=== PATIENT | male | born 1935 | race Caucasian/White ===

== ENCOUNTER → 2018-03-21 | Outpatient (CLI) | payer OTHER ==
[~2018-03-21] MED LIST: CARISOPRODOL 3350 MG PO; CLEOCIN HCL150 MG PO; COUMADIN 5 MG TA5 M1 PO; DILANTIN100 MG PO; FETZIMA80 MG PO; KEPPRA 500 MG500 M1 PO; LAMICTAL (BLUE)25 MG PO; METHOTREXATE 22.5 M1 PO; RAZADYNE 4 MG TA4 M1 PO; REMERON45 MG PO; SIMVASTATIN40 MG PO; ZOCOR 10 MG TAB10 MG; ZYPREXA2.5 MG PO
== END ==
LOC: CAT 09:19
DX: G31.9 Degenerative disease of nervous system, unspecified (principal); G40.209 Localization-related (focal) (partial) symptomatic epilepsy and epileptic syndromes with complex partial seizures, not intractable, without status epilepticus; F32.4 Major depressive disorder, single episode, in partial remission; R53.1 Weakness; Z95.0 Presence of cardiac pacemaker

== ENCOUNTER 2019-05-29 18:34 | Inpatient (IN) | payer OTHER ==
[2019-05-28 23:00] VITALS: BP 125/69
[~2019-05-29] VITALS: Ht 177.8 cm; Wt 89.8 kg
[2019-05-29 18:41] VITALS: BP 108/69
[2019-05-29 19:53] LABS: ABSOLUTE NEUTROPHILS 7.7 thou/uL (1.4-8.2); BASOPHILS 0.4 % (0.0-2.0); HEMATOCRIT 47.5 % (42.0-52.0); HEMOGLOBIN 15.9 gm/dL (14.0-18.0); LYMPHOCYTES 6.3 % (24.0-44.0); MCH 34.3 pg (26.0-34.0); MCHC 33.5 g/dL (28.0-37.0); MCV 102.1 fL (80.0-100.0); MONOCYTES 7.2 % (1.0-8.0); PLATELET COUNT 201 thou/uL (150-400); POLYS 86.1 % (36.0-66.0); RBC 4.65 mil/uL (4.50-6.00); WBC 8.9 thou/uL (4.0-11.0)
[2019-05-29 19:57] LABS: CALCIUM 9.9 mg/dL (8.5-10.1); CREATININE 1.1 mg/dL (0.7-1.3); POTASSIUM 4.4 mmol/L (3.5-5.1)
[2019-05-29 20:03] LABS: ALBUMIN 4.1 g/dL (3.4-5.0); TOTAL BILIRUBIN 0.6 mg/dL (<0.1-1.0); TOTAL PROTEIN 8.2 g/dL (6.4-8.2)
[2019-05-29] MEDS ORDERED: LORAZEPAM 22 MG/1 ML PO (20:27)
[2019-05-29 20:28] LABS: INR 2.4; PROTIME 25.4 Seconds (9.3-11.4)
[2019-05-29] MEDS ORDERED: EFFEXOR 5050 MG/1 T1 PO (20:29)
[2019-05-29] MEDS ORDERED: REMERON15 MG PO (20:29)
[2019-05-29] MEDS ORDERED: ABILIFY 2 MG2 M1 PO (20:30)
[2019-05-29] MEDS ORDERED: DESVENLAFAXINE100 M3 PO (20:31)
[2019-05-29] MEDS ORDERED: ASPIR-LOW81 MG PO (20:37)
[2019-05-29 22:06] LABS: URINE BILIRUBIN NEGATIVE (Negative); URINE BLOOD TRACE (Negative); URINE CLARITY CLEAR; URINE COLOR YELLOW; URINE GLUCOSE-RANDOM* NEGATIVE (Negative); URINE KETONES NEGATIVE (Negative); URINE LEUKOCYTES-REFLEX NEGATIVE (Negative); URINE NITRITE-REFLEX NEGATIVE (Negative); URINE PROTEIN (DIPSTICK) NEGATIVE (Negative); URINE SPECIFIC GRAVITY <= 1.005 (1.005-1.035); URINE UROBILINOGEN 0.2 E.U./dl (0.2-1.0)
[2019-05-29] MEDS ORDERED: LEXAPRO20 MG PO (22:13)
[2019-05-29 22:18] VITALS: BP 125/61
[2019-05-29 22:20] VITALS: BP 100/61
--- NOTE | 2019-05-30 01:00 | NUR ---
ADMISSION NOTE: AOX4. RA. VSS. ADMISSION HISTORY AND ASSESSMENT DOCUMENTED AND COMPLETED. BREAD ROOM HAND CHILDS AT BEDSIDE, ORDERS RECIEVED AND IMPLEMENTED. MEDICATED FOR PAIN RELIEF. PT UP WITH MIN ASSIST, USES URINAL. EDUCATED ABOUT FALL PRECAUTION, CONSENT SIGNED. DAUGHTER AT BEDSIDE. WILL CONITNUE TO MONITOR.
[2019-05-30 02:32] LABS: HEMATOCRIT 42.8 % (42.0-52.0); MCH 33.2 pg (26.0-34.0); MCHC 32.6 g/dL (28.0-37.0); RBC 4.2 mil/uL (4.50-6.00); RDW 14.2 % (10.5-14.5); WBC 12.4 thou/uL (4.0-11.0)
[2019-05-30 02:38] LABS: CALCIUM 8.9 mg/dL (8.5-10.1); CREATININE 1.3 mg/dL (0.7-1.3); POTASSIUM 3.9 mmol/L (3.5-5.1)
[2019-05-30 03:00] LABS: INR 2.3; PROTIME 24.1 Seconds (9.3-11.4)
[2019-05-30 03:23] VITALS: BP 127/65
--- NOTE | 2019-05-30 05:45 | NUR ---
INCREASE IN LACTIC ACID, AND WBC. CRITICAL LAB VALUES COMMUNICATED TO KAROL CHILDS. ORDERS RECIEVED FOR TRANSFER TO TELE. DAUGHTER AND PT MADE AWARE ABOUT LABS AND TRANSFER STATUS. PT DOES REPORT LESS ABDOMINAL PAIN INTENSITY. WILL CONTINUE TO MONITOR.
[2019-05-30 06:30] VITALS: BP 110/59
--- NOTE | 2019-05-30 07:26 | NUR ---
ASSUMED PT CARE AT 0620 A TRANSFER FROM . STRIP PRINTED AND IN CHART. ADMISSION ASSESSMENT DONE. PT STABLE IN BED. VSS. PT IS NPO. LACTIC ACID TRENDING DOWN. PT CARE TRANSFERED TO DAY NURSE
--- NOTE | 2019-05-30 07:40 | EKG ---
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 Machine: MARIA ELENA : 1935 Requested By: Gabriel Bustillo Order Number: [id number] MD: Cash Hoskins Measurements Intervals [place] Rate: 70 P: 0 KS: 54 QRS: -90 QRSD: 140 T: 76 QT: 448 QTc: 484 Interpretive Statements Ventricular-paced rhythm No further analysis attempted due to paced rhythm Compared to ECG 03/02/2015 19:43:09 No significant changes Electronically Signed On 05-30-2019 7:40:28 CDT by Cash Hoskins [email or web address] <ELECTRONICALLY SIGNED> By: Cash Hoskins MD, [facility] 05/30/19 0740 06 06 Cash Hoskins MD, [facility] /EPI
--- NOTE | 2019-05-30 12:11 | NUR ---
met with patient and family at bedside. patient admits with abd pain and reports pain at this time. RN is present. patient resides at home alone in split level home. 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 he does own cooking and has cleaning lady for home. PCP Dr Dru Treadwell. He does not drive and family assists with driving. Casemgt following for dc planning.
[2019-05-30 13:00] VITALS: BP 120/62
[2019-05-30 16:00] VITALS: BP 123/74
--- NOTE | 2019-05-30 18:45 | NUR ---
pt progressing today. fentanyl given for abdominal discomfort with little to no pain relief. tylenol given po. vpaced, room air. npo in am, then increased to clear liquid diet. abdominal discomfort associated with diet, encouraged pt to take small amount of fluid, then increase as tolerated. pt tolerated pm meal, tylenol controlling abd discomfort, sleeping now. pt up to chair initially with PT, then up to chair again. encouraging active rom while in bed and being out of bed as much as possible. family members present, providing support.
[2019-05-30 19:25] VITALS: BP 114/58
[2019-05-30 23:07] VITALS: BP 114/58
[2019-05-31 03:33] VITALS: BP 122/56
[2019-05-31 05:21] LABS: MCH 33.7 pg (26.0-34.0); MCHC 33.2 g/dL (28.0-37.0); MCV 101.4 fL (80.0-100.0); RBC 3.55 mil/uL (4.50-6.00)
[2019-05-31 05:32] LABS: INR 1.7; PROTIME 17.4 Seconds (9.3-11.4)
[2019-05-31 05:50] LABS: CALCIUM 8.5 mg/dL (8.5-10.1); CREATININE 0.9 mg/dL (0.7-1.3); POTASSIUM 3.9 mmol/L (3.5-5.1)
--- NOTE | 2019-05-31 06:49 | NUR ---
ASSUMED PT CARE AT 1900. PT C/O PAIN ON ABD GAVE TYLENOL AND PT WENT TO SLEEP. PT VSS. PT WAS NOT VERY STEADY AND ADVISED HE SHOULD CALL PRIOR TO GETTING UP. PT HAD ELEVATED TEMP THIS AM AND GAVE TYLENOL TEMP DECREASED. WILL CONTINUE TO MONITOR PER POC.
[2019-05-31 08:30] VITALS: BP 124/62
[2019-05-31 10:49] LABS: BE(vivo) -0.7 mmol/L (-2 to +3); HCO3 22.4 mmol/L (22.0-26.0); PCO2 32.5 mmHg (35.0-45.0); PO2 59.4 mmHg (80.0-100.0); pH 7.457 (7.360-7.450); sO2 92.3 % (92.0-98.0)
[2019-05-31 12:30] VITALS: BP 128/52
--- NOTE | 2019-05-31 14:17 | NUR ---
Pt going to surgery for possible exp lap and possible bowel resection. Will continue to follow and reassess his dc needs postop. Therapy on hold.
--- NOTE | 2019-05-31 14:54 | 2DMMODE ---
[facility] [address] [place] [address] 2 D/M-MODE ECHOCARDIOGRAM Name: SUNDAR NOBLES Room #: 207-P [facility].#: [id number] Admission: 05/29/19 Attend Phys: Merry Rust MD Discharge: Date of : 39 Report #: [id number] THIS REPORT FOR: //name// APPROVED REPORT Study performed: 05/31/2019 13:09:05 EXAM: Comprehensive 2D, Doppler, and color-flow Echocardiogram Patient Location: In-Patient Room #: 207 Status: routine BSA: 1.98 HR: 70 bpm BP: 128/52 mmHg Rhythm: NSR Other Information Study Quality: Adequate Technically limited study due to inability to position patient. Indications Atrial Fibrillation Pacemaker Porcine bioprosthetic Aortic valve, Porcine bioprosthetic Mitral valve 2D Dimensions IVC: 21.00 mm Aortic Valve AoV Peak Mejia.: 2.74 m/s AO Peak Gr.: 28.06 mmHg AO Mean Gr.: 14.92 mmHg AO V2 Mean: 1.79 m/s AO V2 VTI: 45.32 cm Pulmonary Valve PV Peak Mejia.: 1.38 m/s PV Peak Gr.: 7.59 mmHg Tricuspid Valve TR Peak Mejia.: 3.41 m/s TR Peak Gr.: 46.59 mmHg PA Pressure: 56.00 mmHg [facility] [address] [place] [address] 2 D/M-MODE ECHOCARDIOGRAM Name: SUNDAR NOBLES Room #: 207-P ADM IN M.R.#: [id number] Admission: 05/29/19 Attend Phys: Merry Rust MD Discharge: Date of : 39 Report #: [id number] Left Ventricle The left ventricle is normal size. There is normal left ventricular wall thickness. The left ventricular systolic function is normal. The left ventricular ejection fraction is within the normal range. LVEF is 55-60%. Right Ventricle The right ventricle is normal size. Right ventricular systolic function appears grossly normal. Pacemaker lead is present in the right ventricle. Atria Left atrium is dilated. Right atrium is dilated. Pacemaker lead is present in the right atrium. Aortic Valve Bioprostheic porcine Aortic Valve is present. Prosthetic aortic valve is grossly normal in appearance. No aortic regurgitation is present. Calculated aortic valve area is 2.7 cm2 with maximum pressure gradient of 30 mmHg and mean pressure gradient of 15 mmHg. Mitral Valve Bioprosthetic pocine Mitral Valve present. Bioprosthetic pocine Mitral Valve present. Trace to mild mitral regurgitation. No evidence of mitral valve stenosis. Tricuspid Valve The tricuspid valve is normal in structure. Moderate tricuspid regurgitation. Estimated PAP is 56 mmHg Pulmonic Valve The pulmonary valve is normal in structure. There is no pulmonic valvular regurgitation. Great Vessels The aortic root is normal in size. IVC is dilated and collapses >50% with inspiration. Pericardium There is no pericardial effusion. <Conclusion> The left ventricle is normal size. There is normal left ventricular wall thickness. The left ventricular systolic function is normal. The right ventricle is normal size. [facility] [address] [place] [address] 2 D/M-MODE ECHOCARDIOGRAM Name: SUNDAR NOBLES Room #: 207-P [facility].#: [id number] Admission: 05/29/19 Attend Phys: Merry Rust MD Discharge: Date of : 39 Report #: [id number] Left atrium is dilated. Bioprostheic porcine Aortic Valve is present. Prosthetic aortic valve is grossly normal in appearance. Bioprosthetic pocine Mitral Valve present. Trace to mild mitral regurgitation. Moderate tricuspid regurgitation. Estimated PAP is 56 mmHg <ELECTRONICALLY SIGNED> By: Zeke Valdez MD 05/31/193 52 52 Zeke Valdez MD /INF
--- NOTE | 2019-05-31 16:03 | NUR ---
PATIENT CARE ASSUMED, ALERT AND ORIENTED X4, COMPLAINTS OF ABDOMINAL PAIN, PREPARE PATIENT FOR EXPLORATORY SURGERY, FAMILY AT BEDSIDE, WILL CONTINUE TO MONITOR
[2019-05-31 18:16] LABS: BE(vivo) -4.8 mmol/L (-2 to +3); HCO3 18.5 mmol/L (22.0-26.0); PCO2 29.8 mmHg (35.0-45.0); PO2 136.4 mmHg (80.0-100.0); pH 7.411 (7.360-7.450); sO2 98.8 % (92.0-98.0)
[2019-05-31 20:00] VITALS: BP 120/75
[2019-05-31 20:31] VITALS: BP 104/59
[2019-05-31 20:46] LABS: BE(vivo) -5.7 mmol/L (-2 to +3); HCO3 17.9 mmol/L (22.0-26.0); PCO2 30.8 mmHg (35.0-45.0); PO2 106.2 mmHg (80.0-100.0); pH 7.383 (7.360-7.450); sO2 97.9 % (92.0-98.0)
[2019-05-31 22:00] VITALS: BP 102/65
[2019-06-01] VITALS (9 sets, daily range): BP systolic 95–129; BP diastolic 56–74
[2019-06-01 04:31] LABS: CALCIUM 7.6 mg/dL (8.5-10.1); CREATININE 1.3 mg/dL (0.7-1.3); MAGNESIUM 1.5 mg/dL (1.8-2.4); PHOSPHORUS 3.5 mg/dL (2.5-4.9); POTASSIUM 4.2 mmol/L (3.5-5.1)
[2019-06-01 04:58] LABS: HEMATOCRIT 43.3 % (42.0-52.0); MCHC 33.6 g/dL (28.0-37.0); MCV 101.3 fL (80.0-100.0); RBC 4.27 mil/uL (4.50-6.00); RDW 13.9 % (10.5-14.5); WBC 10.2 thou/uL (4.0-11.0)
[2019-06-01 05:15] LABS: BE(vivo) -4.5 mmol/L (-2 to +3); HCO3 18.9 mmol/L (22.0-26.0); PCO2 30.8 mmHg (35.0-45.0); PO2 95.8 mmHg (80.0-100.0); pH 7.406 (7.360-7.450); sO2 97.4 % (92.0-98.0)
[2019-06-01 05:52] LABS: HEMOGLOBIN 14.5 gm/dL (14.0-18.0)
--- NOTE | 2019-06-01 07:19 | NUR ---
PATIENT HAD EXPLORATORY PROCEDURE, ON HOLD FROM OT AT THIS TIME.
--- NOTE | 2019-06-01 07:47 | NUR ---
PATIENT ADMITTED FROM RECOVERY 05/31/19 AT 2000. PATIENT ON VENTILATOR, SAMUEL PATENT AND DRAINING. RIGHT RADIAL ART LINE IN PLACE. NG TUBE PATENT. PATIENT OXYGEN NEEDS DECREASED FROM 60% TO 40% OVER NIGHT. NO SIGNS OF ACUTE DISTRESS NOTED AT THIS TIME. SPOKE WITH DR. BREWSTER ABOUT DECREASED URINE OUTPUT. WILL CONTINUE TO MONITOR.
--- NOTE | 2019-06-01 08:10 | NUR ---
Pt TRANSFERRED TO ICU FOR HIGHER LEVEL OF CARE AND IS NOW ON VENTILATOR S/P EX LAP WITH PLACEMENT OF DRAINS YESTERDAY. WILL NEED NEW PT ORDERS TO RESUME PT INTERVENTIONS WHEN Pt IS APPROPRIATE FOR THERAPY SERVICES.
[2019-06-01 09:19] LABS: INR 1.8; PROTIME 19.2 Seconds (9.3-11.4)
[2019-06-01 09:37] LABS: BE(vivo) -4.1 mmol/L (-2 to +3); HCO3 19.2 mmol/L (22.0-26.0); PCO2 30.6 mmHg (35.0-45.0); PO2 77.6 mmHg (80.0-100.0); pH 7.416 (7.360-7.450); sO2 95.8 % (92.0-98.0)
[2019-06-02] VITALS (11 sets, daily range): BP systolic 109–128; BP diastolic 58–69
--- NOTE | 2019-06-02 04:29 | NUR ---
NO OVERNIGHT EVENTS. INCREASED DRAINAGE OF RIGHT JOSE LUIS DRAIN. VSS. INCREASED URINARY OUTPUT. ASSESSMENTS AND VITAL SIGNS CHARTED. CONTINUE TO FOLLOW POC. WILL CONTINUE TO MONITOR.
[2019-06-02 05:26] LABS: CALCIUM 7.5 mg/dL (8.5-10.1); POTASSIUM 3.7 mmol/L (3.5-5.1)
[2019-06-02 05:29] LABS: HEMATOCRIT 35.2 % (42.0-52.0); MCH 33.4 pg (26.0-34.0); MCV 101.3 fL (80.0-100.0); RBC 3.48 mil/uL (4.50-6.00); RDW 13.9 % (10.5-14.5); WBC 12.2 thou/uL (4.0-11.0)
[2019-06-02 05:47] LABS: HEMOGLOBIN 11.6 gm/dL (14.0-18.0)
[2019-06-02 09:51] LABS: BE(vivo) -4.1 mmol/L (-2 to +3); HCO3 19.9 mmol/L (22.0-26.0); PCO2 32.8 mmHg (35.0-45.0); PO2 89.7 mmHg (80.0-100.0); pH 7.401 (7.360-7.450)
--- NOTE | 2019-06-02 10:48 | NUR ---
0730-Pt was sedated. Pupils reacted to the light briskly. Temp 98.3 Axillary. LS clear, on vent A/C 18. V. paced rhythm, Regular w/ 70s. Traceable edema on LE, kaelyn. +1 edema on hand, kaelyn. Propofol @19.98. Fentanyl gtt @25mcg. Maintenamce fluid, 1/2 NS @125. Dressing on midline of ABD w/ ABD pads & hypafix tapes, IC&D. JOSE LUIS 1 on R side w/ serosanguneous, JOSE LUIS 2 on L side w/ serous. NG on L nare was taped @60 w/ bile color drainage on LIS. Buckley in place. 834- Sedation vacation was initiated. Propofol was turned off. Notified RT. RT put pt on C-PAP mode @0840, 5-5-40% 0940-RT did blood gas and put pt on vent again w/ AC 18. RR remained between 17 to 24 during C-PAP weaning Restraints has been off since 0835. Pt was very calm & cooperative. Pt c/o pain though. Fentanyl gtt was on although propofol was turned off.
[2019-06-03] VITALS (28 sets, daily range): BP systolic 100–176; BP diastolic 43–73
[2019-06-03 02:13] LABS: HEMATOCRIT 33.5 % (42.0-52.0); HEMOGLOBIN 10.9 gm/dL (14.0-18.0); MCH 32.7 pg (26.0-34.0); MCHC 32.4 g/dL (28.0-37.0); RBC 3.32 mil/uL (4.50-6.00); RDW 13.9 % (10.5-14.5); WBC 11.6 thou/uL (4.0-11.0)
[2019-06-03 02:23] LABS: CALCIUM 7.6 mg/dL (8.5-10.1); POTASSIUM 3.2 mmol/L (3.5-5.1)
--- NOTE | 2019-06-03 06:00 | NUR ---
PT SLEPT AT INTERVALS TONIGHT. ABD DRESSINBG INTACT. TOTAL OF 45 CC FROM 2 JOSE LUIS DRAINS. 1000 CC UO THIS SHIFT. AWAKE AND ALERT. A VERY DELIGHTFUL GENTLEMAN. REMAINS PACED. WILL CONT TO MONITIOR
--- NOTE | 2019-06-03 10:04 | NUR ---
Pt is alert, oriented x 4. Pt was watching TV. Afebrile. Clear LS on upper lobe and decreased on base. V. PACED rhythm on monitor w/ HR 70s. BP 100s to 110s. [place] in place. Edema on hands and traceable on ankle, kaelyn. Hypo active BS. Dressing in place w/ JOSE LUIS each side. NPO. NG tube on L nare w/ WIS, Greenish drainage. Buckley in place. 0900-Pt c/o pain, 03/31. Fentanyl 50 mcg was administered per order. Potassium infusion was initiated this morning but pt c/o burning on his IV site. Reduced infusion rate but pt still c/o the burning. Turned off the infusion. 946-PICC line placement was done by IV team. CX-RAY was ordered. Pt tolerated well.
--- NOTE | 2019-06-03 10:51 | NUR ---
CXR CONFIRMED [OCC IN DISTAL SVC, PICC RELEASED FOR IMMEDIATE USE PER PROTOCOL.
[2019-06-04] VITALS (19 sets, daily range): BP systolic 119–164; BP diastolic 28–75
--- NOTE | 2019-06-04 06:00 | NUR ---
PT AWAKE AND ALERT. VSS CONT TO HAVE ABD PAIN., DRESSINGS DRY AND INTACT TOTAL OF 40 CC BILAT JOSE LUIS DRAINAGE. 200 CC NG TUBE DRG AND 1400 CC UO THIS SHIFT. REMAINS V PACED. WILL CONBT TO MONITOR.
[2019-06-04 08:40] LABS: HEMATOCRIT 29.3 % (42.0-52.0); HEMOGLOBIN 9.9 gm/dL (14.0-18.0); MCH 34.2 pg (26.0-34.0); MCHC 33.8 g/dL (28.0-37.0); MCV 101.2 fL (80.0-100.0); RBC 2.89 mil/uL (4.50-6.00); WBC 9.6 thou/uL (4.0-11.0)
[2019-06-04 09:00] LABS: CALCIUM 7.5 mg/dL (8.5-10.1); CREATININE 0.7 mg/dL (0.7-1.3); MAGNESIUM 1.9 mg/dL (1.8-2.4); POTASSIUM 3.2 mmol/L (3.5-5.1)
--- NOTE | 2019-06-04 12:33 | NUR ---
FOLLOWING FOR DC PLANNING. CLINICAL INFO REVIEWED. PT ADMIT WITH ENTERITIS AND IS NOW POD #4 EX LAP WITH WASHOUT AND DRAIN PLACEMENT FOR ABD ABSCESS. NGT IN, NPO, EXTUBATED 06/02/19. ON TPN AT PRESENT. THERAPY EVALS REORDERED NOW THAT EXTUBATED. PT LIVES ALONE AND HAS SUPPORTIVE FAMILY. LIKELY NEEDS REHAB, HH VS ACUTE VS SKILLED.
--- NOTE | 2019-06-04 12:37 | O ---
[address] [address] OPERATIVE REPORT Name: SUNDAR NOBLES Room #: 241-P ADM IN M.R.#: [id number] Admission: 05/29/19 Attend Phys: Merry Rust MD Discharge: Date of : 39 Report #: [id number] THIS REPORT FOR: //name// CC: Mich Rust DATE OF SERVICE: 05/31/2019 PROCEDURE PERFORMED: 1. Diagnostic laparoscopy. 2. Exploratory laparotomy with washout. 3. Placement of drains. PREOPERATIVE DIAGNOSES: 1. Ischemic versus infectious enteritis. 2. Peritonitis. 3. Lactic acidosis. 4. Atrial fibrillation, on warfarin. 5. Valvular heart disease, status post mitral and aortic valve replacement. 6. Coronary artery disease. 7. Rheumatoid arthritis. POSTOPERATIVE DIAGNOSES: 1. Ischemic versus infectious enteritis. 2. Peritonitis. 3. Lactic acidosis. 4. Atrial fibrillation, on warfarin. 5. Valvular heart disease, status post mitral and aortic valve replacement. 6. Coronary artery disease. 7. Rheumatoid arthritis. SURGEON: Dr. Barroso. ANESTHESIA: General. ESTIMATED BLOOD LOSS: Less than 50 mL. SPECIMENS: None. COMPLICATIONS: None. FINDINGS: 1. The patient had an abscess between the small bowel and transverse mesocolon. 2. The patient had severe transverse colon colitis. 3. No perforation appreciated. 4. The patient had serosanguineous ascites. [address] [address] OPERATIVE REPORT Name: SUNDAR NOBLES Room #: 241-P [facility] IN [facility]#: [id number] Admission: 05/29/19 Attend Phys: Merry Rust MD Discharge: Date of : 39 Report #: [id number] INDICATIONS FOR PROCEDURE: The patient is a very pleasant 83-year-old gentleman who has been hospitalized with abdominal pain. The patient had a CTA performed that demonstrated findings concerning for infectious versus ischemic enteritis. The patient was observed and his pain worsened, he started having nausea and vomiting. General Surgery was consulted. At the time of my exam, he was found to be peritonitic. I did discuss his case with the team that had been seeing him throughout his stay as well as his family. I recommended diagnostic laparoscopy, possible exploratory laparotomy, possible bowel resection, possible ostomy. The risks, benefits and alternatives of the procedure were discussed with the patient and his family. The risks discussed included but were not limited to the risk of bleeding, infection, bowel resection, possible ostomy, need for further surgery, further hospitalization, damage to any intra-abdominal organs, anesthesia (cardiac, pulmonary and neurologic type complication), and . The patient and his family members have the opportunity to ask questions. All questions were answered to the best of my ability. At the end of the discussion, they did wish to proceed with surgery. DESCRIPTION OF PROCEDURE: After informed consent was obtained as above, the patient was taken to the operating room and placed in the supine position. Both arms were tucked. Buckley catheter was then inserted. General anesthesia was induced. The anterior abdomen was prepped and draped in the usual sterile fashion. A timeout was performed. All were in agreement. A 5 mm supraumbilical incision was made. Veress needle was then inserted. Pneumoperitoneum was created. A 5 mm port was passed and the laparoscope was then inserted. Abdomen was inspected immediately. There was serosanguineous ascites that was in the pelvis that was appreciated. We began by placing 2 more ports, one in the suprapubic position along the left lower quadrant position. These were [address] after injection of local anesthetic without any difficulties. The abdomen was then explored. There was omentum that was stuck to the patient's right upper quadrant. Therefore, I started running the small bowel. The small bowel was identified at the terminal ileum exactly where it met the cecum. Small bowel was then ran proximally. I was able to run the small bowel for several feet until I reached the right upper quadrant where the small bowel was tethered to surrounding structures through the fibrinous adhesions. The small bowel easily pulled away from this; however, the further I kept going, the stronger the fibrinous adhesions became until a point where the small bowel was tightly adhered to the transverse mesocolon. Upon blunt dissection of the bowel away from the transverse mesocolon, there was release of a small purulent abscess. This abscess was at the base of the transverse mesocolon. The transverse mesocolon was found to be erythematous and thickened. However, I cannot see a definite perforation in the small bowel or in the colon. Given these findings, I did not feel comfortable backing out without [address] [address] OPERATIVE REPORT Name: SUNDAR NOBLES Room #: 241-P [facility] IN ..#: [id number] Admission: 05/29/19 Attend Phys: Merry Rust MD Discharge: Date of : 39 Report #: [id number] actually palpating the bowel and trying harder to rule out a perforation given that I had found an abscess cavity. Therefore, I elected to convert to an open procedure to further inspect the bowel as well as for washout and irrigation purposes. Therefore, I stopped the laparoscopic portion of the procedure and converted to the midline incision using a 10 blade scalpel. Incision was carried down to the fascia using electrocautery. Peritoneal cavity was entered. Bookwalter was set up. The patient's entire abdomen was explored. The region in the right upper quadrant was explored carefully. The patient's stomach was completely normal. The patient's duodenum was completely normal. The patient's cecum was completely normal. The ascending colon was completely normal. The hepatic flexure of the colon was normal. The patient did have an approximately 10 inches segment of transverse colon just distal to the hepatic flexure that was inflamed and thickened. The patient had an inflamed and thickened epiploic appendages around the colon and he also had inflamed and thickened transverse mesocolon in this region. The abscess cavity was appreciated. The small bowel that was attached to this area was closely inspected. There was no kristian perforation identified. The remainder of the colon was then explored. The rest of the transverse colon and descending colon was explored and found to be normal. The sigmoid colon was normal. I then ran the small bowel in an open fashion from the ligament of Treitz to terminal ileum, it was found to be without any perforation. The small bowel did have the region of inflammation of the part of the bowel that was tightly adhered to the transverse mesocolon and abscess cavity, but other than that was completely normal. Given the findings of severe inflammation and abscess, I was concerned about missing a perforation. At this time, I did ask one of my partners to come and assist me. Ultimately, I showed him the findings in the patient's abdomen and we elected for no bowel resection and placement of drains for wide drainage and continued observation. The patient's abdomen was irrigated out with copious amounts of warm irrigation. The irrigation was clear when we were finished with this. Hemostasis was present. Two 19-[place] drains were placed, one posterior to the transverse mesocolon and one anterior to the transverse colon in the right upper quadrant, one was brought out through the patient's right lower quadrant and one was brought out through the patient's left lower quadrant, secured to the skin using nylon suture. Hemostasis was present. We then focused on closure of the fascia. The fascia was closed using 0 PDS in a continuous running fashion, taking 0.5 cm x 0.5 cm advancement. The skin was then irrigated out and the skin was closed using fei. The patient's abdomen was cleaned and dried in appropriate fashion. Appropriate dressings were applied. The patient tolerated the procedure well and there were no adverse events throughout the course of procedure. The patient was left intubated as he was having respiratory failure on a mask [address] [address] OPERATIVE REPORT Name: SUNDAR NOBLES Room #: 241-P [facility] IN [facility]#: [id number] Admission: 05/29/19 Attend Phys: Merry Rust MD Discharge: Date of : 39 Report #: [id number] prior to the procedure; however, he had no decompensation in his overall status throughout the course of the procedure, and he tolerated it well. <ELECTRONICALLY SIGNED> By: Mike Barroso MD 06/04/19 1237 1131 1440 Mike Barroso MD /nt
--- NOTE | 2019-06-04 16:07 | NUR ---
PATIENT UP TO CHAIR WITH PT. HE HAS RESTED TODAY. PAIN NUMBER STAYS THE SAME DESPITE PAIN MEDICATION ADMINISTRATION, HOWEVER, HE DOES EXPRESS THE PAIN MEDICATION HELPS HIM. MIDLINE INCISION DRESSING CHANGED BY DR. BREWSTER. PATIENT PROGRESSING TOWARDS PLAN OF CARE WITH USE OF INCENTIVE SPIROMETER AND INCREASING MOBILITY.
--- NOTE | 2019-06-04 19:16 | HC ---
[facility] [place] [address] CONSULTATION Name: SUNDAR NOBLES Room #: 241-P ADM IN M.R.#: [id number] Admission: 05/29/19 Attend Phys: Merry Rust MD Discharge: Date of : 39 Report #: [id number] THIS REPORT FOR: //name// CC: Mich Rust DATE OF SERVICE: 06/01/2019 INFECTIOUS DISEASES CONSULTATION REASON FOR CONSULTATION: I was asked to evaluate concerning peritonitis with abscess and sepsis. HISTORY OF PRESENT ILLNESS: The patient was an 83-year-old who presented on 05/29/2019 with acute abdominal pain. He does have a history of rheumatoid arthritis, coronary artery disease, atrial fibrillation and aortic, mitral valve replacement. Pain was initially sharp and was increasing in nature. No nausea or vomiting. No reported diarrhea. Tends to be more constipated. Treats this with MiraLax every other day. Remains on methotrexate for his rheumatoid arthritis. Presented to the Emergency Room where CT scan showed nonspecific enteritis without evidence of abscess. Subsequently, worsened and required laparotomy where intra-abdominal abscess was identified associated with abscess between the transverse mesocolon and small bowel. There was transverse colon colitis evident without definite perforation. He also developed further respiratory compensation following NG tube placement in the right mainstem bronchus. This has been corrected. Remains on the ventilator on FiO2 of 40%. Moderate tracheal secretions. No other cardiac issues. He does have aortic and mitral valve replacement. His antibiotics have included ciprofloxacin and metronidazole. His maximum temperature has been up to 100.9 axillary. Hemodynamically, he has remained stable. He has a JOSE LUIS in place with serosanguineous output. No stool output. NG tube in place to suction. Orally intubated. Central venous access without drainage. REVIEW OF SYSTEMS: A 10-point review was negative other than what has been described above. ALLERGIES: MORPHINE. MEDICATIONS: As noted on his MAR including admitting medications including Zocor, lorazepam, Abilify, Coumadin, Keppra, methotrexate, Remeron, desvenlafaxine, aspirin, Lexapro. PAST MEDICAL HISTORY: Coronary artery disease, coronary bypass grafting, atrial fibrillation, aortic and mitral valve bioprosthetic replacement, anxiety, rheumatoid arthritis, on immunosuppression, diverticulosis, seizure disorder, permanent pacemaker. [address] [address] CONSULTATION Name: SUNDAR NOBLES Saji Room #: 241-P [facility] IN [facility].#: [id number] Admission: 05/29/19 Attend Phys: Merry Rust MD Discharge: Date of : 37 Report #: [id number] FAMILY HISTORY: Noncontributory. SOCIAL HISTORY: Nonsmoker, no significant alcohol intake. PHYSICAL EXAMINATION: VITAL SIGNS: He is afebrile, hemodynamically stable. Maximum temperature 100.9 degrees axillary. On fentanyl and propofol. IV access without erythema or drainage. Orally intubated without mucositis or lesion. HEENT: Eyes, without scleral icterus. Pupils equal, round and reactive to light. SKIN: Without rash or decubitus. No palpable adenopathy. LUNGS: Coarse bilaterally. HEART: Regular, without murmur, gallop or rub. ABDOMEN: Distended, diffusely tender. Midline abdominal incision well approximated. Drain with serosanguineous output. GENITOURINARY: External genitalia unremarkable with indwelling Buckley catheter. There are no masses or lesions. RECTAL: Not performed. EXTREMITIES: Without clubbing, cyanosis or edema. The patient was able to move all of his extremities. Unable to follow commands, otherwise due to his sedation. LABORATORY STUDIES: ABGs on 40% FiO2 showed a pO2 of 77, pCO2 of 30, pH 7.4. Blood cultures are negative to date. Hemoglobin 14.5, white count 10.2, platelet count 159,000. Lactate was 2.6, creatinine 1.3. Chest x-ray with left lower lobe consolidation and right perihilar infiltrate. Echocardiogram revealed normal LV function, bioprosthetic aortic and mitral valve without abnormality. No intraoperative cultures obtained. IMPRESSION: Postoperative day #1 from laparotomy finding transverse colitis with intra-abdominal abscess. He has coronary artery disease, status post coronary bypass grafting. Atrial fibrillation, previously on Coumadin, now respiratory failure. Other issues include anxiety, depression, seizure disorder, diverticulosis. Still unclear as to the etiology of his perforation. The patient has had issues with some constipation and a question whether he had an episode of ischemia versus related to diverticular disease. RECOMMENDATION: The patient will stay on broad antibiotic coverage. We will see how he does over the next week as he continues his rehabilitation from this [address] [address] CONSULTATION Name: SUNDAR NOBLES Saji Room #: 241-P ADM IN .R.#: [id number] Admission: 05/29/19 Attend Phys: Merry Ruts MD Discharge: Date of : 37 Report #: [id number] event. I have discussed with daughter and nursing at the bedside. We will monitor for development of any other further intraabdominal abscess. <ELECTRONICALLY SIGNED> By: Silvano Diaz MD 06/04/19 [id number] Silvano Diaz MD /nt
[2019-06-05] VITALS (15 sets, daily range): BP systolic 69–154; BP diastolic 17–66
[2019-06-05 03:27] LABS: ALBUMIN 1.6 g/dL (3.4-5.0); CALCIUM 7.8 mg/dL (8.5-10.1); CREATININE 0.8 mg/dL (0.7-1.3); PHOSPHORUS 2.3 mg/dL (2.5-4.9); POTASSIUM 3.4 mmol/L (3.5-5.1); TOTAL BILIRUBIN 0.3 mg/dL (<0.1-1.0); TOTAL PROTEIN 5.4 g/dL (6.4-8.2)
--- NOTE | 2019-06-05 06:00 | NUR ---
AWAKE AND ALERT. REMAINS A CCU TELE OVERFLOW. SLEPT At intervals tonight. 1300 CC UO AND TOTAL OF 60 CC JOSE LUIS DRAINAGE. ABD DRESSING DRY AND INTACT. V PACED RHYTHM. WILL CONT TO MONITOR.
--- NOTE | 2019-06-05 07:44 | NUR ---
DR BREWSTER HERE. LEFT ORDERS TO CLAMP NG TUBE NOW CHECK RESIDUALS Q 6 HRS AND TO CALL OF > 300 CC. RETURN TO LIS IF N&V. WILL CONT TO MONITOR
--- NOTE | 2019-06-05 10:41 | NUR ---
ASSUMED CARE OF PT AT 0645. DR BREWSTER ORDER TO CLAMP NG AND CHECK RESIDUAL Q6H. DR HERNANDEZ INQUIRING IF LOVONOX CAN BE STARTED. DR BREWSTER PAGED AT 1040 TO ASK ABOUT HEPARIN V LOVONOX. PT UP TO CHAIR WITH THERAPY. PLAN TO TX OUT OF ICU WHEN BED AVAILABLE. POSS ADMIT TO [facility].
--- NOTE | 2019-06-05 11:03 | NUR ---
PATIENT SEEN BY DR. WASHINGTON ON 06/04/19. THERAPY IS REEVALUATING. NEED TO SEE HOW PATIENT IS PERFORMING WITH FUNCTIONAL MOBILITY PATIENT MEDICALLY STABILIZES. REHAB CONTINUING TO FOLLOW.
--- NOTE | 2019-06-05 17:15 | NUR ---
PT. ARRIVE AT FLOOR AROUND 1330; PT. AOX4; ABLE TO AMBULATE FROM WHEELCHAIR TO BED WITH TWO PEOPLE ASSISSTANCE; SLOW; C/O ABDOMEN PAIN WHEN LYING HEAD LOW; SCHEDULE MEDICATION GIVEN PER REPORT BEFORE BEING TRANSFER; ST. WANTS TO HAVE SOME REST; EDUCATED ABOUT FINISHING ASSESSMENT BEFORE REST; ST. UNDERSTANDING; ASSESSMENT PERFORMED; RESTING ON BED; EDUCATED ABOUT BED & CALL LIGHTS BOTTOMS; PAIN MANAGEMENT; SCHEDULE ACETAMINOPHEN GIVEN; RE-ASSESSMENT PT. ST. DECREASE PAIN; ASKED PAIN LEVEL ST "I DO NOT KNOW"; PT. RESTING WITH RELATIVE AT THE BED SIDE; ASSESSMENT CHARGED; FOLLOWING POC; WILL PASS ON REPORT.
[2019-06-06 00:55] VITALS: BP 119/43
[2019-06-06 05:14] VITALS: BP 129/57
--- NOTE | 2019-06-06 05:49 | NUR ---
Patients cares were assumed at shift change. Patient was assessed and meds were pased. Patient was changed to room 205 from 208 r/t the interferance in the tele monitor, once this change was completed the reseption showed great improvement. hourly rounding wa done.The bed staied in a low and locked position.The bed alarm continues.
[2019-06-06 05:50] LABS: HEMOGLOBIN 9.7 gm/dL (14.0-18.0); MCH 33.5 pg (26.0-34.0); MCHC 33.4 g/dL (28.0-37.0); MCV 100.4 fL (80.0-100.0); RBC 2.89 mil/uL (4.50-6.00); RDW 14.1 % (10.5-14.5); WBC 11.4 thou/uL (4.0-11.0)
[2019-06-06 06:09] LABS: ALBUMIN 1.6 g/dL (3.4-5.0); CALCIUM 7.5 mg/dL (8.5-10.1); CREATININE 0.7 mg/dL (0.7-1.3); MAGNESIUM 1.8 mg/dL (1.8-2.4); PHOSPHORUS 2.8 mg/dL (2.5-4.9); POTASSIUM 3.4 mmol/L (3.5-5.1); TOTAL BILIRUBIN 0.2 mg/dL (<0.1-1.0); TOTAL PROTEIN 5.3 g/dL (6.4-8.2)
[2019-06-06 07:45] VITALS: BP 136/61
--- NOTE | 2019-06-06 09:14 | NUR ---
PATIENT HAS BEEN ACCEPTED TO FOR ACUTE REHAB WITH ANTICIPATED ADMISSION FOR TUESDAY, IF PATIENT IS MEDICALLY READY. WILL CONTINUE TO FOLLOW. FELL CUTTER INFORMED.
[2019-06-06 11:36] VITALS: BP 110/44
[2019-06-06 16:39] VITALS: BP 129/49
--- NOTE | 2019-06-06 17:59 | NUR ---
ASSESSMENT CHARTED. PT ALERT AND ORIENTED. VSS. RECEIVED PRN PAIN MED WITH PARTIAL RELIEF. NG TUBE DISCONTINUED THIS AM. BILATERAL JOSE LUIS DRAIN INTACT. DRESSING C/D/I. SAMUEL CATHETER PATENT TO DD. UP IN THE CHAIR THIS SHIFT. CHECKED FREQUENTLY AND NEEDS MET. WILL CONTINUE TO MONITOR.
[2019-06-06 19:18] VITALS: BP 117/47
[2019-06-07 05:19] VITALS: BP 131/65
--- NOTE | 2019-06-07 07:52 | NUR ---
PATIENT CARES WERE ASSUMED AT SHIFT CHANGE. PATIENT WAS ASSESSED AND MEDS WERE PASSED. PATIENT ONCE AGAIN WAS RETURNED TO ROOM 208 AFTER A DOWN GRADE TO MED/SURG STATUS. HOURLY ROUNS WERE DONE. THE BED IS IN A LOW AND LOCKED POSITION.
[2019-06-07 08:38] VITALS: BP 129/41
[2019-06-07 10:42] LABS: BASOPHILS 0.6 % (0.0-2.0); EOSINOPHILS 1.5 % (0.0-3.0); HEMOGLOBIN 10.3 gm/dL (14.0-18.0); LYMPHOCYTES 7.1 % (24.0-44.0); MCH 36.1 pg (26.0-34.0); MCHC 34.4 g/dL (28.0-37.0); MONOCYTES 8.7 % (1.0-8.0); PLATELET COUNT 330 thou/uL (150-400); POLYS 82.1 % (36.0-66.0); RBC 2.85 mil/uL (4.50-6.00); RDW 14.9 % (10.5-14.5)
[2019-06-07 11:52] VITALS: BP 115/43
[2019-06-07 12:46] LABS: CREATININE 0.8 mg/dL (0.7-1.3); MAGNESIUM 1.9 mg/dL (1.8-2.4); PHOSPHORUS 2.6 mg/dL (2.5-4.9); POTASSIUM 3.6 mmol/L (3.5-5.1)
[2019-06-07 16:25] VITALS: BP 121/65
[2019-06-07 16:50] VITALS: BP 121/65
--- NOTE | 2019-06-07 19:43 | NUR ---
ASSUMED CARE AT 0700, SHIFT ASSESSMENT DONE, MEDS GIVEN, VSS. REPORTED PAIN, PRN PAIN MEDS GIVEN. KUB DONE, STILL SHOWING ILEUS. ORDER RECEIVED TO PUT PATIENT NPO EXCEPT FOR MEDS. ON ROOM AIR, SAMUEL WAS TAKEN OUT. TPN RUNNING. HAS NOT HAD A BOWEL MOVEMENT SINCE SURGERY. WILL CONTINUE TO ASSESS AND ASSIST WITH ADLs NEEDED.
[2019-06-07 20:15] VITALS: BP 133/51; BP 133/56
[2019-06-08 04:46] VITALS: BP 118/49
--- NOTE | 2019-06-08 05:22 | NUR ---
ASSESSMENT DOCUMENTED.PT BEEN RESTING IN NO ACUTE DISTRESS.A/OX4.VSS.AFEBRILE.S/P EXP LAP.ABD INCISIONS COVERED WITH DRY DRESSING.JOSE LUIS DRAINS X2 IN PLACE,DD.PT HAD SEVERAL LARGE STOOLS X4 THIS NIGHT,STARTED WITH FORMED STOOL AND, NOW LOOSE STOOLS.ABD FEEL SOFT TO TOUCH,DENIES NAUSEA.INCONTINENT OF B&B.TPN INFUSING ALONG WITH IVFS.ABT INFUSED PER ORDERS,TOLERATED.PAIN MEDS PER ORDERS.PT DENIES ANY NEEDS AT THIS TIME.WILL CONT TO MONITOR PER POC. PT POGRESSING FAIRLY TOWARDS GOALS.
[2019-06-08 08:34] LABS: CALCIUM 8.3 mg/dL (8.5-10.1); CREATININE 0.7 mg/dL (0.7-1.3); MAGNESIUM 1.9 mg/dL (1.8-2.4); POTASSIUM 3.7 mmol/L (3.5-5.1)
[2019-06-08 08:48] VITALS: BP 124/45
[2019-06-08 12:00] VITALS: BP 122/51
[2019-06-08 15:37] VITALS: BP 120/57
--- NOTE | 2019-06-08 16:33 | NUR ---
[facility] acute rehab has accepted the pt and can admit over the weekend if he is dc ready. Pt on clears today with plans to adv diet as tolerated. Care team updated.
--- NOTE | 2019-06-08 18:06 | NUR ---
ASSESSMENT CHARTED. PT ALERT AND ORIENTED. PLEASANT AND COOPERTAIVE WITH CARES. UP IN THE CHAIR THIS SHIFT. TOLERATED CLEAR AND FULL LIQUID DIET. NO CONCERNS AT THIS TIME. PROGRESSING WELL TOWARD DISCHARGE GOAL. WILL CONTINUE TO MONITOR.
[2019-06-08 20:43] VITALS: BP 139/68
--- NOTE | 2019-06-09 04:38 | NUR ---
ASSESSMENT DOCUMENTED.PT BEEN RESTING IN NO ACUTE DISTRESS.A/OX4.VSS.S/P EX LAP W/WASHOUT.ABD INCISIONS COVERED WITH DRY DRESSING.JOSE LUIS DRAINS X2.INCONT OF B&B.HAD LOOSE STOOLSX2.TOLERATING FULL LIQUID ALTHOUGH PT HAS NO APPETITE TO FOOD.TPN INFUSING AT 85CC/HR.ABT PER ORDERS.PAIN MEDS SCHEDULED.PT DENIES ANY NEEDS AT THIS TIME.WE WILL CONT TO MONITOR PER POC.
[2019-06-09 05:57] VITALS: BP 133/66
[2019-06-09 07:06] VITALS: BP 124/46
[2019-06-09 12:33] VITALS: BP 117/41
--- NOTE | 2019-06-09 14:45 | NUR ---
PT SEEN BY MARYJANE MEZA NP 06/08/19. PT ACCEPTED TO [facility] PENDING TOLERANCE TO DIET. ANTICIPATE ADMISSION Tuesday06/11/19.
[2019-06-09 16:00] VITALS: BP 127/36
--- NOTE | 2019-06-09 16:50 | NUR ---
ASSESSMENT CHARTED. PT ALERT AND ORIENTED. VSS. RECEIVED SCHEDULED PAIN MED WITH PARTIAL RELIEF. ABD INCISION C/D/I. NO DRAINAGE NOTED. LEFT AND RIGHT JOSE LUIS DRAIN INTACT. HAD 3 LOOSE BM THIS SHIFT. UP IN THE CHAIR. TOLERATED FULL DIET WELL. NO CARDIAC OR RESPIRATORY DISTRESS NOTED. WILL CONTINUE TO MONITOR.
[2019-06-09 19:12] VITALS: BP 128/52
[2019-06-10 04:15] VITALS: BP 140/48
--- NOTE | 2019-06-10 04:32 | NUR ---
ASSESSMENT DOCUMENTED.PT BEEN RESTING IN NO ACUTE DISTRESS.A/OX4.VSS.PT BEEN SLEEPING MOST OF THE NIGHT,EASY TO AROUSE.ABDOMINAL INCISION WITH DRY DRESSING.JOSE LUIS DRAINS IN PLACE.INCONT OF BLADDER.PERICARE PROVIDED.C/O BACK PAIN THAT WAS CONTROLLED WITH PAIN MEDS.GI ROUNDED AND ADVANCED PT'S DIET TO REGULAR.PT DENIES NEEDS AT THIS TIME.WILL CONT TO MONITOR PER POC.
[2019-06-10 14:17] LABS: HEMOGLOBIN 10.5 gm/dL (14.0-18.0); MCHC 32.8 g/dL (28.0-37.0); MCV 100.6 fL (80.0-100.0); PLATELET COUNT 468 thou/uL (150-400); RBC 3.18 mil/uL (4.50-6.00); RDW 14.6 % (10.5-14.5)
[2019-06-10 14:31] LABS: % SATURATION 10 % (20-39); IRON 20 ug/dL (65-175); TIBC 203 ug/dL (250-450)
[2019-06-10 14:47] LABS: ABSOLUTE NEUTROPHILS 11.4 thou/uL (1.4-8.2); ATYPICAL LYMPHS 1 %
[2019-06-10 14:49] LABS: TOXIC GRANULATION 1+
[2019-06-10 14:59] LABS: FOLIC ACID 15.9 ng/mL (8.6-58.9)
[2019-06-10 15:36] LABS: ALBUMIN 2.1 g/dL (3.4-5.0); CALCIUM 8.1 mg/dL (8.5-10.1); MAGNESIUM 1.9 mg/dL (1.8-2.4); POTASSIUM 4.3 mmol/L (3.5-5.1); TOTAL BILIRUBIN 0.2 mg/dL (<0.1-1.0); TOTAL PROTEIN 6.4 g/dL (6.4-8.2)
[2019-06-10 16:00] VITALS: BP 121/57
--- NOTE | 2019-06-10 16:47 | NUR ---
PT ALERT AND ORIENTED. VSS. SCHEDULED PAIN MED GIVEN ORDERED. PT UP IN THE CHAIR THIS SHIFT. HAD BM X3. BS ACTIVE. TOLERATED REGULAR DIET. TPN DISCONTINUED. ABD DRESSING C/D/I. PT PROGRESSING WELL TOWARD DISCHARGE GOAL. WILL CONTINUE TO MONITOR.
[2019-06-10 19:49] VITALS: BP 122/69
[2019-06-11 03:35] LABS: PROTIME 10.7 Seconds (9.3-11.4)
--- NOTE | 2019-06-11 03:45 | NUR ---
ASSESSMENT CHARTED. VSS. PT DENIES CONCERN. AB PAIN CONT WITH SCHEDULED PAIN MEDS. Q2 TURNS. X1 BM, INCONTINENT. R AND L JOSE LUIS DRAINS MINIMAL OUTPUT. WILL CONTINUE TO MONITOR AND WITH POC.
[2019-06-11 07:20] LABS: URINE BILIRUBIN NEGATIVE (Negative); URINE BLOOD 2+ (Negative); URINE CLARITY CLEAR; URINE COLOR YELLOW; URINE GLUCOSE-RANDOM* NEGATIVE (Negative); URINE KETONES NEGATIVE (Negative); URINE LEUKOCYTES NEGATIVE (Negative); URINE NITRITE NEGATIVE (Negative); URINE PROTEIN (DIPSTICK) NEGATIVE (Negative); URINE SPECIFIC GRAVITY 1.025 (1.005-1.035); URINE UROBILINOGEN 0.2 E.U./dl (0.2-1.0)
[2019-06-11 08:31] VITALS: BP 119/65
[2019-06-11 08:50] LABS: CASTS None Seen /LPF (None Seen); SQUAMOUS 4-10 Moderate /LPF (0-3)
[2019-06-11 08:51] LABS: BACTERIA 1-9 Few /HPF (None Seen); CRYSTALS None Seen /LPF (None Seen); URINE RBC 3-10 Few /HPF (0-2); URINE WBC 0-5 Rare /HPF (0-5)
[2019-06-11 10:36] LABS: HEMATOCRIT 28.9 % (42.0-52.0); HEMOGLOBIN 9.5 gm/dL (14.0-18.0); MCH 33.5 pg (26.0-34.0); MCHC 32.7 g/dL (28.0-37.0); MCV 102.5 fL (80.0-100.0); RBC 2.82 mil/uL (4.50-6.00); RDW 15.1 % (10.5-14.5)
[2019-06-11 10:39] LABS: CALCIUM 7.8 mg/dL (8.5-10.1); POTASSIUM 4.6 mmol/L (3.5-5.1)
[2019-06-11] MEDS ORDERED: CIPRO500 MG PO (11:15)
[2019-06-11] MEDS ORDERED: METRONIDAZOLE500 M4 PO (11:15)
[2019-06-11] MEDS ORDERED: ENOXAPARIN80 MG/0.1 SUBQ (11:16)
--- NOTE | 2019-06-11 15:17 | NUR ---
ASSESSMENT CHARTED. PT ALERT AND ORIENTED. VSS. RECEIVED SCHEDULED PAIN MED WITH PARTIAL RELIEF. ABD INCISION C/D/I. REDNESS NOTED ON THE MIDLINE INCISION DR. BREWSTER AWARE. LEFT JOSE LUIS DRAIN REMOVED. RIGHT JOSE LUIS DRAIN INTACT. ORDERS GIVEN TO DISCHARGE PT TO REHABU [facility]. REPORT CALLED IN TO FAD[facility]. FAMILY NOTIFIED.
--- NOTE | 2019-06-13 14:33 | HC ---
[facility] [place] [place] [address] CONSULTATION Name: SUNDAR NOBLES Room #: 208-P [facility] IN ..#: [id number] Admission: 05/29/19 Attend Phys: Merry Rust MD Discharge: 06/11/19 Date of : 37 Report #: [id number] THIS REPORT FOR: //name// CC: Mich Rust DATE OF SERVICE: 06/04/2019 HISTORY OF PRESENT ILLNESS: The patient is an 83-year-old white male admitted with abdominal discomfort was noted to have an intra-abdominal abscess with sepsis and transverse colon colitis. He underwent an exploratory laparotomy with drain placement. His course has been complicated by lgmbs-de-gpedwdw hypoxic respiratory failure, pneumonia, electrolyte abnormalities. We are seeing him in rehabilitation medicine consultation. PAST MEDICAL HISTORY: Includes coronary artery disease with prior coronary artery bypass grafting and valve replacement, history of atrial fibrillation, permanent pacemaker, seizure disorder, on Keppra, depression, anxiety. MEDICATIONS: Please see the full medication listing. SOCIAL HISTORY: Lives in a house alone, did not utilize gait aids. This is a split level. He does have involved family and they note that he could go home with a daughter who lives on one level where they would only be 2 steps in. The daughter works; however, but another daughter could possibly be there at least initially or the daughter that works might be able to take at least a couple of days off when he is ready to return back home. REVIEW OF SYSTEMS: He did not offer any current complaints of chest pain, shortness of breath or abdominal discomfort. No focal extremity pain complaints. PHYSICAL EXAMINATION: GENERAL: An 83-year-old white male in no obvious distress. VITAL SIGNS: Last recorded temperature 99.2, pulse 70, respirations 20, blood pressure 148/71. NEUROLOGIC: The patient is alert. He is currently undergoing breathing treatments with respiratory therapy. He is otherwise on 2 liters nasal cannula. He follows basic 1 step commands without difficulty. EXTREMITIES: He has functional range of motion of both upper extremities. Strength is grade 3+ to 4-/5. He does have some right upper extremity distal edema. His lower extremities, no focal calf swelling, functional range of motion, strength is grade 3+ to 4-/5. ASSESSMENT: An 83-year-old white male with the following problem list: 1. Medical complexity with generalized debilitation. [address] [address] CONSULTATION Name: NOBLESSUNDAR Room #: 208-P [facility] IN ..#: [id number] Admission: 05/29/19 Attend Phys: Merry Rust MD Discharge: 06/11/19 Date of : 39 Report #: [id number] 2. Intraabdominal abscess with sepsis. 3. Transverse colon colitis, now status post exploratory laparotomy and drain placement. 4. Iwfkx-rx-ylrjnuj hypoxemic respiratory failure. 5. Pneumonia. 6. Electrolyte abnormality. 7. History of significant coronary artery disease with coronary artery bypass grafting. 8. Atrial fibrillation with permanent pacemaker. 9. Seizure disorder. PLAN: Agree with therapy reevaluations as are being obtained. We will need to see how he does with his functional mobility as he further medically stabilizes. Family is supportive, with the ability for him to return back to the home setting with the daughter is closely involved. We will be glad to follow along with you regarding his rehab therapy needs. <ELECTRONICALLY SIGNED> By: Chris Macias MD 06/13/19 1433 [id number] Chris Macias MD /nt
== END 2019-06-11 15:23 | DRG 853 ==
LOC: ER 18:34 → 2N 21:51 → 4S 21:51 → EROBS 21:51 → 2N 21:51 → 4S 22:43 → 2N 05-30 06:25 → ICU 05-31 19:20 → 2N 06-05 13:46 → ENTRNSPT 06-11 14:52 → EDTRNSPTSTS 06-11 14:56 → 2N 06-11 15:23
PROVIDERS: Internal Medicine; Internal Medicine Cardiovascular Disease; Internal Medicine Gastroenterology; Internal Medicine Pulmonary Disease; Nurse Practitioner Acute Care; Nurse Practitioner Family; Physician Assistant; Surgery; ADMIT Internal Medicine
PROC: 0DJD4ZZ Inspection of Lower Intestinal Tract, Percutaneous Endoscopic Approach (ICD-10-PCS; principal; 2019-05-31)
PROC: 0W9G00Z Drainage of Peritoneal Cavity with Drainage Device, Open Approach (ICD-10-PCS; 2019-05-31)
PROC: 5A1945Z Respiratory Ventilation, 24-96 Consecutive Hours (ICD-10-PCS; 2019-05-31)
PROC: 0BH17EZ Insertion of Endotracheal Airway into Trachea, Via Natural or Artificial Opening (ICD-10-PCS; 2019-05-31)
PROC: 02HV33Z Insertion of Infusion Device into Superior Vena Cava, Percutaneous Approach (ICD-10-PCS; 2019-06-03)
DX: A41.9 Sepsis, unspecified organism (principal); K65.1 Peritoneal abscess; J96.21 Acute and chronic respiratory failure with hypoxia; E43 Unspecified severe protein-calorie malnutrition; J18.1 Lobar pneumonia, unspecified organism; K65.9 Peritonitis, unspecified; E87.2 Acidosis; I48.21 Permanent atrial fibrillation; E87.1 Hypo-osmolality and hyponatremia; D62 Acute posthemorrhagic anemia; K56.7 Ileus, unspecified; I25.10 Atherosclerotic heart disease of native coronary artery without angina pectoris; F41.9 Anxiety disorder, unspecified; F32.9 Major depressive disorder, single episode, unspecified; G40.909 Epilepsy, unspecified, not intractable, without status epilepticus; M06.9 Rheumatoid arthritis, unspecified; E78.5 Hyperlipidemia, unspecified; E87.6 Hypokalemia; I07.1 Rheumatic tricuspid insufficiency; R65.20 Severe sepsis without septic shock; I95.9 Hypotension, unspecified; D53.9 Nutritional anemia, unspecified; K52.9 Noninfective gastroenteritis and colitis, unspecified; G25.81 Restless legs syndrome; K57.90 Diverticulosis of intestine, part unspecified, without perforation or abscess without bleeding; Z23 Encounter for immunization; Z95.1 Presence of aortocoronary bypass graft; Z95.2 Presence of prosthetic heart valve; Z88.8 Allergy status to other drugs, medicaments and biological substances; Z79.899 Other long term (current) drug therapy; Z79.82 Long term (current) use of aspirin; Z79.01 Long term (current) use of anticoagulants; Z95.0 Presence of cardiac pacemaker; Z68.28 Body mass index [BMI] 28.0-28.9, adult
CPT/HCPCS: 10078; 10081; 10195; 10203; 10797; 27000; 50010; 50101; 50249; 50331; 50386; 50455; 50555; 52265; 53307; 53310; 56525; 56528; 57092; 57103; 62110; 62900; 70005

== ENCOUNTER 2019-06-11 13:35 | Inpatient (IN) | payer OTHER ==
[~2019-06-11] VITALS: Ht 177.8 cm; Wt 94.1 kg
[~2019-06-11 13:35] MED LIST changes: +ABILIFY 2 MG2 M1 PO; +ASPIR-LOW81 MG PO; +CIPRO500 MG PO; +DESVENLAFAXINE100 M3 PO; +EFFEXOR 5050 MG/1 T1 PO; +ENOXAPARIN80 MG/0.1 SUBQ; +LEXAPRO20 MG PO; +LORAZEPAM 22 MG/1 ML PO; +METRONIDAZOLE500 M4 PO; +REMERON15 MG PO
[2019-06-11 15:00] VITALS: BP 122/64
--- NOTE | 2019-06-11 15:22 | NUR ---
chart review. pt up in recliner chair. cm intro to dcp, team meeting on acute rehab and transition of care. pt preferrs going by [facility], he is a & o x 3 with some forgetfulness, pleasant and able to make his needs know. pt reported " live alone, have 4 kids, 3 live here, don't drive anymore. my kids drive me. independent, have stairs at home. stand to shower and have shower seat. cook and use microwave. noted hearing aid in right ear and wearing glasses. no co of pain. " been to rehab in [facility]"/pt. will cont following as needed for dc needs.
--- NOTE | 2019-06-11 17:35 | NUR ---
PT ARRIVED AT 1530 FROM CCU. VITALS STABLE. ALERT AND ORIENTED*4, INUPIAT. C/O MILD ABDOMINAL PAIN AROUND THE INCISION. ABDOMINAL INCISION REMAINS DRY AND INTACT, DRESSING CHANGED DOWNSTAIRS PRIOR TO TRANSFER. JOSE LUIS DRAIN REMAINS INTACT AND PATENT. ABDOMEN IS SOFT AND DISTENDED, LAST BM TODAY, INCONTINENT OF SMEARS THIS EVENING. PT WAS INCONTINENT OF BLADDER, DEPEND CHANGED, REDNESS AROUND SACRAL AREA. PICC LINE ON LEFT UPPER ARM REMAINS INTACT AND PATENT, MESSAGE LEFT FOR IV TEAM TO FOLLOW PT FOR DRESSING CHANGES. ANTISEIZURE PRECAUTIONS INITIATED. PT VERBALISED POOR APPETITE FOR THE PAST WEEK. Q1H VISUAL CHECKS. CALL LIGHT WITHIN REACH. FALL PRECAUTIONS IN PLACE
[2019-06-11 19:32] VITALS: BP 125/73
--- NOTE | 2019-06-12 00:29 | NUR ---
PT ASSESSMENT DONE AND VSS. MED GIVEN AND WELL TOLERATED. FALL PRECAUTIONS IN PLACE. SLEEPING WELL. HOURLY ROUNDING DONE. CALL LIGHT AT BS. WILL CONTINUE TO MONITOR.
[2019-06-12 07:15] LABS: HEMATOCRIT 30.3 % (42.0-52.0); MCH 33.4 pg (26.0-34.0); MCHC 33.2 g/dL (28.0-37.0); MCV 100.6 fL (80.0-100.0); RBC 3.01 mil/uL (4.50-6.00); WBC 11.9 thou/uL (4.0-11.0)
[2019-06-12 07:18] LABS: PROTIME 10.9 Seconds (9.3-11.4)
[2019-06-12 07:29] LABS: CALCIUM 8.3 mg/dL (8.5-10.1)
[2019-06-12 07:50] VITALS: BP 145/85
--- NOTE | 2019-06-12 10:15 | NUR ---
IV TEAM SPOKE WITH DON RN TO GET ORDER TO DC PICC LINE, NO IV MEDS ORDERED AND EXPLAINED THAT KEEPING PICC IS NOT APPROPRIATE FOR LAB DRAWS ONLY.
--- NOTE | 2019-06-12 13:30 | NUR ---
ASSUMED CARE AT 0700. PATIENT IS ALERT AND ORIENTED X4 AND FORGETFUL AT TIMES. PATIENT RANKIN, FARM TRACTOR OPERATOR ARE EQUAL. LUNGS ARE CLEAR AND DEMINISHED. ABD IS SOFT WITH BSX4. PATIENT HAS BERLIN DRY AND INTACT. [place] BANDAID APPLIED. DRAIN DRESSING ON RIGHT CHANGED. MT'D 25 CC FROM . PATIENT CONTINUES ON ABT FOR UTI. PATIENT TOLERAING ABT WITHOUT ADVERSE AFFECTS. PATIENT HAS PICC LINE IN HIS LEFT UPPER ARM. SITE WITHOUT REDNESS OR SWELLING. PATIENT IS UP WITH ASSIST OF 1-2 STAFF WITH GAIT BELT AND WALKER. PATIENT REMAINS ON SZ PRECAUTIONS, WITH SR'S PADDED. FALL AND SAFETY PROTOCOLS IN PLACE. DENIES ANY PAIN AT THIS TIME. CONTINUES TO PROGRESS TOWARDS D/C GOALS. WILL CONTINUE TO MONITER.
--- NOTE | 2019-06-12 14:19 | NUR ---
TEAM MTG: PLAN TO RETEAM NEXT WEEK, WILL CHECK WITH FAMILY RELATED TO POSSIBLE DC OPTIONS.
[2019-06-12 19:45] VITALS: BP 111/59
[2019-06-13 06:22] LABS: INR 1.2; PROTIME 12.6 Seconds (9.3-11.4)
[2019-06-13 08:30] VITALS: BP 104/56
--- NOTE | 2019-06-13 18:10 | NUR ---
ASSUMED CARES AT 0700. PT AWAKE, ORIENTED*3. C/O BACK PAIN, VOLTAREN GEL APPLIED AND ACETAMINOPHEN ADMINISTERED. VITALS REMAIN STABLE. ABDOMEN FIRM, DISTENDED WITH ACTIVE BS. ABDOMINAL INCISION CLEANED AND DRESSING CHANGED, BERLIN REMAIN INTACT. JOSE LUIS DRAIN INTACT AND PATENT, 25CC EMPTIED FROM IT. SEIZURE PRECAUTIONS MAINTAINED. PT WAS INCONTINENT OF BLADDER. UP WITH 1-2 MAX ASSIST. Q1H VISUAL CHECKS. CALL LIGHT WITHIN REACH. FALL PRECAUTIONS IN PLACE.
[2019-06-13 20:39] VITALS: BP 131/73
--- NOTE | 2019-06-14 01:28 | NUR ---
PT ALERT AND ORIENTED X 4. ABD DRESSINGS C/D/I. JOSE LUIS DRAIN PATENT WITH SMALL AMT SEROSANGUINOUS DRAINAGE. PT TOOK HS MEDS IN APPLESAUCE WITHOUT DIFFICULTY. TYLENOL GIVEN AT START OF SHIFT FOR PAIN. RELIEF VERBALIZED. BED ALARM ON FOR SAFETY. PT APPEARS TO BE SLEEPING ON HOURLY ROUNDS.
[2019-06-14 05:45] LABS: INR 1.4; PROTIME 14.6 Seconds (9.3-11.4)
[2019-06-14 20:05] VITALS: BP 134/69
--- NOTE | 2019-06-15 02:47 | NUR ---
PT ALERT AND ORIENTED X 4. ABD DRESSINGS C/D/I. JOSE LUIS DRAIN INTACT WITH SMALL AMT SEROSANGUINOUS DRAINAGE. INCONT OF URINE IN LARGE AMTS. PT TAKES MEDS IN APPLESAUCE WITHOUT DIFFICULTY. 3+ LE EDEMA BILAT. PT DENIES PAIN OR DISCOMFORT. BED ALARM ON FOR SAFETY. PT CHECKED ON HOURLY ROUNDS.
[2019-06-15 04:28] LABS: INR 1.7; PROTIME 17.6 Seconds (9.3-11.4)
[2019-06-15 07:32] VITALS: BP 153/44
--- NOTE | 2019-06-15 17:05 | NUR ---
ASSUMED CARES AT 0700. PT ORIENTED*4 BUT FORGETFUL. C/O LOWER BACK AND BUTTOCK PAIN, PAIN MEDICATION ADMINISTERED SCHEDULED. VITALS REMAIN STABLE. BS ACTIVE *4, ABDOMEN SOFT AND DISTENDED, LAST BM 06/14, LAXATIVE ADMINISTERED PER ORDER. ABDOMINAL INCISION REMAINS DRY AND INTACT, BERLIN ARE INTACT. JOSE LUIS DRAIN ON RIGHT SIDE ABDOMINAL DC'D BY SURGEON. XSMALL AMOUNT OF DRAINAGE NOTED ON RIGHT SIDE (WHERE JOSE LUIS DRAIN WAS DC'D) DRESSING MAINTAINED. PT UP WITH MAX ASSIST, GB, W/C. SEIZURE PRECAUTIONS IN PLACE. Q1H VISUAL CHECKS. CALL LIGHT WITHIN REACH. FALL PRECAUTIONS IN PLACE
[2019-06-15 19:43] VITALS: BP 120/62
--- NOTE | 2019-06-16 03:49 | NUR ---
ASSUMED PATIENT CARE AT APPROX. 2200. PATIENT IS A&OX4 AND CAN BE FORGETFUL AT TIMES. ASSESSMENT CHARTED. MEDICATIONS GIVEN PER MAR. VSS. PATIENT HAS RECENT SURGICAL STITCHES AND A DC'D PEG TUBE SITE. DRESSING REMAINS INTACT. PATIENT IS YET TO HAVE A BM AND HAS HYPERACTIVE BOWEL SOUNDS. WILL MONITOR THROUGHOUT NIGHT BUT WILL ASK TO ADMIN. MIRALAX DURING WAKE HOURS. FALL PRECAUTIONS IN PLACE. WILL CONTINUE TO MONITOR AND FOLLOW POC.
[2019-06-16 05:11] LABS: INR 2.2; PROTIME 22.8 Seconds (9.3-11.4)
--- NOTE | 2019-06-16 05:33 | NUR ---
UPON ASSESSMENT PT WAS NOTED TO HAVE A WHITE TONGUE POSSIBLY INDICATING THRUSH. PATIENT IS ON CIPRO AND WAS NPO FOR SOME TIME FOR HIS ABD. SURGERY. WILL PASS ON TO NEXT SHIFT TO MONITOR.
--- NOTE | 2019-06-16 09:41 | NUR ---
ASSUMED CARE AT 0700. PATIENT IS ALERT AND ORIENTED X4. PATIENT RANKIN, CIRCULAR KNITTER ARE Equal. Lungs ARE CLEAR. ABD IS SOFT WITH BSX4. PATIENT HAS BERLIN IN MID ABD THAT ARE CLEAN AND DRY AND OPEN TO AIR. JOSE LUIS DRAIN IS OUT AND DRESSING TO RIGHT LOWER ABD IS DRY AND INTACT. UP IN CHAIR AND OUT TO DINING ROOM FOR MEALS. PATIENT HAS EDEMA IN HIS LOWER EXTREMITIES. SIDE RAILS PADDED FOR SZ PRECAUTIONS. NO SZ ACTIVITY NOTED. CONTINUES ON ABT WITHOUT ADVERSE AFFECTS. FALL AND SAFETY PROTOCOLS IN PLACE. DENIES ANY PAIN AT THIS TIME. CONTINUES TO PROGRESS TOWARDS D/C GOALS. WILL CONTINUE TO MONITER.
[2019-06-16 10:43] VITALS: BP 124/84
[2019-06-16 19:47] VITALS: BP 129/68
--- NOTE | 2019-06-17 02:01 | NUR ---
ASSESSMENT: PT REMAIN ALERT AND ORIENT TIMES THREE, FORGETFUL AT TIMES. REDDING. ON SEIZURE PRECAUTION. NO SEIZURE NOTED. ABD NOTED WITH BERLIN INTACT. VSS, AFEBRILE. SLOW PROGRESS TOWARDDS DC GOALS, WILL CONTINUE TO MONITOR.
[2019-06-17 05:11] LABS: INR 2.3; PROTIME 24.3 Seconds (9.3-11.4)
[2019-06-17 08:10] VITALS: BP 132/80
--- NOTE | 2019-06-17 14:14 | NUR ---
ASSUMED CARES AT 0700. PT AWAKE, ALERT AND ORIENTED*4 BUT FORGETFUL. C/O PAIN LOWER BACK AND BUTTOCKS, ACETAMINOPHEN ADMINISTERED AND PT REPOSITIONED Q2H. VITALS REMAIN STABLE. ABDOMINAL INCISION REMAINS DRY AND BERLIN ARE INTACT, FURNITURE DIPPER. DRESSINGS CHNAGED OLD JOSE LUIS SITES ON R&L, SMALL AMOUNTS OF DRAINAGE NOTED. PT REMAINS INCONTINENT OF BOWEL AND BLADDER. CONTINUES TO HAVE BLE EDEMA, EXTREMITIES ELEVATED. Q1H VISUAL CHECKS. CALL LIGHT WITHIN REACH. FALL PRECAUTIONS IN PLACE.
[2019-06-17 20:15] VITALS: BP 160/78
--- NOTE | 2019-06-18 01:38 | NUR ---
PT ALERT AND ORIENTED X 4. ABDOMINAL INCISION C/D/I WITH BERLIN. EDEMA FROM WAIST DOWN. INCONT OF URINE. VOLTAREN GEL APPLIED TO BACK AND CALVES. PT DENIES PAIN OR DISCOMFORT. BED ALARM ON FOR SAFETY. PT CHECKED ON HOURLY ROUNDS. TURNED Q2H BUT PT REPOSITIONS HIMSELF BACK ONTO HIS BACK.
[2019-06-18 05:31] LABS: ABSOLUTE NEUTROPHILS 8.1 thou/uL (1.4-8.2); BASOPHILS 0.6 % (0.0-2.0); EOSINOPHILS 2.2 % (0.0-3.0); HEMATOCRIT 30.6 % (42.0-52.0); HEMOGLOBIN 10.1 gm/dL (14.0-18.0); LYMPHOCYTES 8.3 % (24.0-44.0); MCH 33.4 pg (26.0-34.0); MCHC 32.9 g/dL (28.0-37.0); MCV 101.4 fL (80.0-100.0); MONOCYTES 9.5 % (1.0-8.0); PLATELET COUNT 376 thou/uL (150-400); POLYS 79.4 % (36.0-66.0); RBC 3.02 mil/uL (4.50-6.00); RDW 15.5 % (10.5-14.5); WBC 10.2 thou/uL (4.0-11.0)
[2019-06-18 05:44] LABS: INR 2.5; PROTIME 26.3 Seconds (9.3-11.4)
[2019-06-18 05:46] LABS: CALCIUM 8.1 mg/dL (8.5-10.1); CREATININE 0.9 mg/dL (0.7-1.3); MAGNESIUM 1.7 mg/dL (1.8-2.4)
[2019-06-18 08:00] VITALS: BP 124/73
[2019-06-18 11:29] LABS: URINE BILIRUBIN NEGATIVE (Negative); URINE BLOOD 3+ (Negative); URINE CLARITY CLEAR; URINE COLOR YELLOW; URINE GLUCOSE-RANDOM* NEGATIVE (Negative); URINE KETONES NEGATIVE (Negative); URINE LEUKOCYTES-REFLEX NEGATIVE (Negative); URINE NITRITE-REFLEX POSITIVE (Negative); URINE PROTEIN (DIPSTICK) NEGATIVE (Negative); URINE SPECIFIC GRAVITY 1.015 (1.005-1.035); URINE UROBILINOGEN 0.2 E.U./dl (0.2-1.0)
[2019-06-18 11:42] LABS: BACTERIA-REFLEX 1-9 Few /HPF (None Seen); CASTS None Seen /LPF (None Seen); CRYSTALS None Seen /LPF (None Seen); SQUAMOUS None Seen /LPF (0-3); URINE WBC-REFLEX 6-15 Few /HPF (0-5)
--- NOTE | 2019-06-18 15:59 | NUR ---
ASSUMED CARE OF PT AT 0715. PT IS A&OX4 AND VITAL SIGNS ARE STABLE. PT REPORTS PAIN IN CALF AND BACK WHICH WAS MANAGED WITH TOPICAL PAIN MEDICAITON, PARTICIPATED IN SCHEDULED THERAPIES. THIS AM PT HAD EPISODE OF GROSS HEMATURIA AND VISUALIZED NORMAN BLOOD DISCHARGING FROM [facility]. UA OBTAINED AND DR. SHARIF NOTIFIED ABOUT RESULTS. PT COMPLETED COURSE OF ANTIBIOTICS THIS AM. ABDOMINAL CT ORDERED AND PROVIDER AWARE OF RESULTS. STARTED PT ON FLOMAX, WARFARIN AND ASPIRIN HELD, AND NURSING WILL CONTINUE TO MONITOR PT FOR S/S OF BLEEDING AND MONITOR LABS. MIDLINE SURGICAL INCISION WITH BERLIN, OPEN TO AIR, SITE WELL APPROXIMATED AND WNL. FALL PRECAUTIONS IN PLACE AND NURSING WILL CONTINUE TO MONITOR.
[2019-06-18 19:10] VITALS: BP 130/75
--- NOTE | 2019-06-18 23:50 | NUR ---
PT ASSESSMENT DONE AND VSS. MEDICATION GIVEN AND WELL TOLERATED. FALL PRECAUTIONS IN PLACE. SLEEPING WELL. WILL CONTINUE TO MONITOR.
[2019-06-19 05:36] LABS: ABSOLUTE NEUTROPHILS 7.3 thou/uL (1.4-8.2); BASOPHILS 0.4 % (0.0-2.0); EOSINOPHILS 2.2 % (0.0-3.0); HEMATOCRIT 29.7 % (42.0-52.0); HEMOGLOBIN 9.8 gm/dL (14.0-18.0); LYMPHOCYTES 10.9 % (24.0-44.0); MCH 33.2 pg (26.0-34.0); MCHC 32.9 g/dL (28.0-37.0); MCV 100.9 fL (80.0-100.0); MONOCYTES 11.4 % (1.0-8.0); PLATELET COUNT 333 thou/uL (150-400); POLYS 75.1 % (36.0-66.0); RBC 2.94 mil/uL (4.50-6.00); RDW 15.2 % (10.5-14.5); WBC 9.7 thou/uL (4.0-11.0)
[2019-06-19 05:52] LABS: CALCIUM 8.3 mg/dL (8.5-10.1); CREATININE 0.8 mg/dL (0.7-1.3); MAGNESIUM 1.7 mg/dL (1.8-2.4); POTASSIUM 3.9 mmol/L (3.5-5.1)
[2019-06-19 05:53] LABS: INR 2.5; PROTIME 25.9 Seconds (9.3-11.4)
[2019-06-19 07:15] VITALS: BP 134/79
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
[2019-06-19 08:00] VITALS: BP 134/79
--- NOTE | 2019-06-19 10:41 | H ---
[facility] [place] [address] HISTORY AND PHYSICAL Name: SUNDAR NOBLES Room #: 509-P ADM IN ..#: [id number] Admission: 06/11/19 Attend Phys: Chris Macias MD Discharge: Date of : 37 Report #: [id number] THIS REPORT FOR: //name// CC: Chris Wheeler DATE OF SERVICE: 06/11/2019 HISTORY AND PHYSICAL/POSTADMISSION PHYSICIAN EVALUATION HISTORY OF PRESENT ILLNESS: The patient has been admitted for acute in-hospital inpatient rehabilitation. Please see the full history and physical. I agree with the documentation including the examination findings as well as the assessment and plan. The patient had problems with sepsis, peritonitis, intra-abdominal abscesses, underwent laparotomy with washout and drain placement on 05/31/2019. He had a postop ileus that has resolved. He had acute on chronic respiratory failure that also resolved. He has chronic atrial fibrillation, on Coumadin. The patient had an NG tube in place, had two abdominal drains with one since removed. He has significant generalized weakness and debilitation. He is off the TPN, tolerating a diet. He is now felt ready for acute in-hospital inpatient rehabilitation. His prior medical history, allergies, social history, habits are all as documented. MEDICATIONS: Please see the full medication listing. REVIEW OF SYSTEMS: No complaints of chest pain, shortness of breath, abdominal discomfort. Please see the full review of systems as documented. PHYSICAL EXAMINATION: GENERAL: He was in no distress. VITAL SIGNS: As noted. Follows basic 1 step command. CHEST: Sounded clear to auscultation. CARDIAC: Regular rate and rhythm. ABDOMEN: He has a right lower quadrant JOSE LUIS drain. He does have fei, which are dressed, nontender. BACK: No CVA tenderness. NEUROLOGIC: Facies appeared symmetric. EXTREMITIES: He does have 1+ edema. Strength is probably a grade 3+ to 4-/5. He has been mod assist coming to stand and is doing some short distance ambulation. ASSESSMENT: 1. Medical complexity with generalized debilitation. 2. Intra-abdominal abscesses with sepsis, peritonitis, status post diagnostic laparoscopy, laparotomy with washout and drain placement on 05/31/2019. 3. Postop ileus, resolved. [address] [address] HISTORY AND PHYSICAL Name: SUNDAR NOBLES Room #: 509-P [facility] IN [facility].#: [id number] Admission: 06/11/19 Attend Phys: Chris Macias MD Discharge: Date of : 37 Report #: [id number] 4. Coronary artery disease. 5. Possible right lower lobe pneumonia. 6. Acute on chronic respiratory failure, which has resolved. 7. Chronic atrial fibrillation, on Coumadin. 8. History of mitral and aortic bioprosthetic valve replacement. 9. Rheumatoid arthritis. PLAN: The patient has been admitted for acute in-hospital inpatient rehabilitation. From a postadmission physician evaluation perspective, there are no relevant changes since the preadmission screening. Please see the above review of prior and current medical and functional conditions and comorbidities. Please see the patient's previous and current functional status. As far as risk of complications, the patient has multiple medical comorbidities as noted above. The initial plan of care involves the interdisciplinary acute inpatient rehabilitation program. Prognosis is reasonably good with estimated length of stay probably at least 2-3 weeks. Potential barriers would include the patient's multiple medical comorbidities and decreased functional status. The patient meets diagnostic criteria for an acute in-hospital inpatient rehabilitation stay. He meets the medical necessity criteria and we will have the databases computer consultant physicians continue to follow. He does have the tolerance for therapies and has appropriate discharge goals back to the home setting. <ELECTRONICALLY SIGNED> By: Chris Macias MD 06/19/19 1041 [id number] Chris Macias MD /[facility]
--- NOTE | 2019-06-19 12:48 | NUR ---
team meeting, recommendation: re tea with dc 8th if daughter can provide supervision, hh (pt, ot, st and nursing).
--- NOTE | 2019-06-19 16:10 | NUR ---
ASSUMED CARE OF PT AT 0715. PT IS A&OX4 AND VITAL SIGNS ARE STABLE. PT CONTINUED TO HAVE HEMATURIA THIS SHIFT, H&H DECREASED SLIGHTLY FROM LABS ON 06/19. NO NEW ORDERS AT THIS TIME. CALLED SURGEON FOR CLARIFICATION ON STAPLE REMOVAL, NO RETURNED CALL AT THIS TIME. MIDLINE INCISION WNL, OPEN TO AIR, BERLIN IN PLACE. PAIN IN CALF AND BACK REPORTED AND MANAGED WITH TOPICAL PAIN OINTMENT, PT PARTICIPATED IN SCHEDULED THERAPIES. SEIZURE PRECAUTIONS CONTINUED FOR HX OF SEIZURES. LASIX ORDERED FOR +3 PITTING EDEMA IN BLE. FALL PRECAUTIONS IN PLACE AND NURSING WILL CONTINUE TO MONITOR.
[2019-06-19 19:39] VITALS: BP 142/72
--- NOTE | 2019-06-19 22:58 | NUR ---
PT ASSESSMENT DONE AND VSS. MED GIVEN AND WELL TOLERATED. FALL PRECAUTIONS IN PLACE. SLEEPING WELL. WILL CONTINUE TO MONITOR.
[2019-06-20 06:04] LABS: INR 2.7
[2019-06-20 08:00] VITALS: BP 136/80
--- NOTE | 2019-06-20 10:28 | NUR ---
ASSUMED CARE OF PT AT 0715. PT IS A&OX4 AND VITAL SIGNS ARE STABLE. PER ORDERS FROM SURGEON TO REMOVE BERLIN AND PLACE STERI STRIPS. NURSE REMOVED TOTAL OF 25 BERLIN FROM PT ABDOMEN WITHOUT COMPLICATIONS. PT PROVIDED CARE INSTRUCITONS FOR ABDOMINAL INCISION, VERBALIZES UNDERSTANDING. REPORTS PAIN IN BLE AND BACK, MANAGED WITH TOPICAL PAIN MEDICAITONS, PT PARTICIPATED IN SCHEDULED THERAPIES. PT GIVEN ORDERED FUROSEMIDE 40MG FOR CONTINUED +3 PITTING EDEMA IN BLE. CONTINUED HEMATURIA WITH URINATION, CONTINUING TO MONITOR. CONTINUE SEIZURE PRECAUTIONS FOR HX OF SEIZURE. FALL PRECAUTIONS IN PLACE AND NURSING WILL CONTINUE TO MONITOR.
[2019-06-20 19:25] VITALS: BP 132/66
--- NOTE | 2019-06-21 01:10 | NUR ---
PT ALERT AND ORIENTED X 4. UP IN CHAIR ALL EVENING. TRANSFERRED TO BED AT WITH ASSIST X 1. ABD INCISION INTACT WITH STERI-STRIPS. SMALL AMT BROWN DRAINAGE ON LOWER THIRD OF INCISION. PT INCONT OF URINE. NO BLOOD NOTED IN URINE. PT DENIES PAIN OR DISCOMFORT. REFUSES VOLTAREN GEL. BED ALARM ON FOR SAFETY. PT APPEARS TO BE SLEEPING ON HOURLY ROUNDS.
[2019-06-21 05:50] LABS: BASOPHILS 0.7 % (0.0-2.0); EOSINOPHILS 3.6 % (0.0-3.0); HEMATOCRIT 30.3 % (42.0-52.0); HEMOGLOBIN 9.9 gm/dL (14.0-18.0); LYMPHOCYTES 12.5 % (24.0-44.0); MCHC 32.7 g/dL (28.0-37.0); MONOCYTES 10.3 % (1.0-8.0); PLATELET COUNT 314 thou/uL (150-400); POLYS 72.9 % (36.0-66.0); RDW 15.5 % (10.5-14.5); WBC 8.2 thou/uL (4.0-11.0)
[2019-06-21 06:02] LABS: CALCIUM 8.2 mg/dL (8.5-10.1); CREATININE 0.7 mg/dL (0.7-1.3); POTASSIUM 4.6 mmol/L (3.5-5.1)
[2019-06-21 07:30] VITALS: BP 130/72
--- NOTE | 2019-06-21 13:05 | NUR ---
ASSUMED CARE OF PT AT 0715. PT IS A&OX4 AND VITAL SIGNS ARE STABLE. PT DENIES PAIN. PRIVATE AIDE ON UNIT FOR TRAINING WITH PT PRIOR TO DISHCARGE. ORDERS FOR DISCHARGE RECEIVED. WOUND CARE COMPLETED. DISCHARGE EDUCATION COMPLETED, DISCHARGE FORMS SIGNED. PRIVATE AIDE REMOVED ITEMS FROM ROOM PRIOR TO DISCHARGE. DISCHARGE PACKET WITH PRESCRIPTION GIVEN IN ENVELOPE TO PRIVATE AIDE. PT AWAITING TRANSPORT AT THIS TIME. FALL PRECAUTIONS IN PLACE AND NURSING WILL CONTINUE TO MONITOR.
--- NOTE | 2019-06-21 13:21 | NUR ---
cm visited with daughter lianne via phone call rt dcp and weekly team meeting " thank you for calling, you mean for how long will he need supervision?/daughter. education on how pt improves, and will need assist with bills and pills currently. " ok thank you i will pass on information to my brother and he will call you"/lianne. will cont following as needed for dc needs.
--- NOTE | 2019-06-21 18:40 | NUR ---
ASSUMED CARE OF PT AT 0715. PT IS A&OX4 AND VITAL SIGNS ARE STABLE. PT REPORTED PAIN 01/29 WHICH WAS NOT RESPONSIVE TO ORDERED PO TYLENOL. ORDERS RECEIVED FOR PO NORCO, LIDOCAINE PATCHES AND HEATING PAD. PT REPORTED IMPROVED PAIN AND PARTICIPATED IN SCHEDULED THERAPIES. BERLIN REMOVED FROM ABDOMINAL INCISION ON 06/20 AND SITE BEGAN TO HAVE LARGE AMOUNTS OF DRAINAGE FOLLOWING LUNCH AND DRESSING WAS CHANGED X2. SURGEON CONTACTED DUE TO CONCERN ABOUT PORTION OF INCISION THAT WAS DRAINING, RED, AND APPEARED TO HAVE WEAK PORTION OF SKIN. NURSING WILL CONTINUE TO MONITOR THE AREA. DUE TO LOOSE AND INCONTINENT STOOLS SURGEON ORDERED STOP MIRALX AND START METAMUCIL DAILY. NO BLOOD NOTED IN URINE, H&H UP FROM PRE[facility]OS LABS. FALL PRECAUTIONS IN PLACE AND NURSING WILL CONTINUE TO MONITOR.
[2019-06-21 20:15] VITALS: BP 131/75
--- NOTE | 2019-06-22 01:38 | NUR ---
PT ALERT AND ORIENTED X 4. INCONT OF URINE. ABD DRESSING C/D/I. PT C/O PAIN IN HIS BACK. TYLENOL GIVEN AT HS. PT TOOK HS MEDS IN APPLESAUCE WITHOUT DIFFICULTY. VOLTAREN ALSO APPLIED TO BACK AT HS. 3+ LE EDEMA BILAT. PT TURNED Q2H. BED ALARM ON FOR SAFETY. PT APPEARS TO BE SLEEPING ON HOURLY ROUNDS.
[2019-06-22 06:06] LABS: INR 3.8; PROTIME 39.5 Seconds (9.3-11.4)
[2019-06-22 07:33] VITALS: BP 145/81
--- NOTE | 2019-06-22 12:58 | PLAN ---
[facility] [place] [address] REHAB UNIT PLAN OF CARE Name: SUNDAR NOBLES Room #: 509-P ADM IN M.R.#: [id number] Admission: 06/11/19 Attend Phys: Chris Macias MD Discharge: Date of : 37 Report #: [id number] THIS REPORT FOR: //name// CC: Chris Wheeler DATE OF SERVICE: 06/13/2019 PROGRESS NOTE/OVERALL PLAN OF CARE SUBJECTIVE: The patient is seen back today in followup. He is in no distress. Temperature 98, pulse 70, respirations 24, blood pressure 145/85. Abdominal exam appears to be benign. He has a drain in place. He has no specific complaints in this regard. He does have 1+ lower extremity edema. Functionally, he transfers with mod assist. Gait is min assist 40 feet with a front-wheeled walker. In occupational therapy, lower body dressing is dependent. He has mild comprehensive deficits in speech and has moderate to severe memory deficits. ASSESSMENT: 1. Medical complexity with generalized debilitation. 2. Sepsis, peritonitis, intra-abdominal abscesses, status post laparotomy with washout and drain placement, 05/31/2019. 3. Postoperative ileus, resolved. 4. Coronary artery disease. 5. Possible right lower lobe pneumonia. 6. Chronic atrial fibrillation, on Coumadin. 7. History of mitral and aortic bioprosthetic valve replacements. 8. Rheumatoid arthritis. 9. Wejix-nc-bduldts blood loss anemia. PLAN: The overall plan of care is based on the preadmission screen, post-admission physician evaluation and information garnered from therapy assessments. 1. Estimated length of stay is probably at least 10 days to 2 weeks and potentially longer. 2. Medical prognosis is reasonably good. 3. Anticipated interventions includes the interdisciplinary acute inpatient rehabilitation program. 4. Anticipated functional outcomes would be for the patient to become modified independent with transfers, mobility, ADLs as well as improvement with cognition, so that he can return home to his home setting. 5. Discharge destination, he has been living in a split level home alone. He could stay with the daughter if needed per report. He did not utilize adaptive devices premorbidly. 6. Expected therapy by discipline includes PT, OT and speech 1 hour per day [address] [address] REHAB UNIT PLAN OF CARE Name: SUNDAR NOBLES Saji Room #: 509-P [facility] IN [facility]#: [id number] Admission: 06/11/19 Attend Phys: Chris Macias MD Discharge: Date of : 37 Report #: [id number] each five days a week throughout the duration of the acute inpatient rehabilitation stay. Hopefully, we will be able to decrease the speech and increase PT and OT, but we will need to see how he does. <ELECTRONICALLY SIGNED> By: Chris Macias MD 06/22/19 1258 [id number] Chris Macias MD /[facility]
--- NOTE | 2019-06-22 15:11 | NUR ---
ASSUMED CARES AT 0700. PT AWAKE, ALERT AND ORIENTED*4 BUT FORGETFUL. C/O PAIN IN LOWER BACK AND RIGHT KNEE, VOLTAREN GEL AND LIDOCAINE PATCHES APPLIED. VITALS REMAIN STABLE. OPEN AREA IN THE MIDDLE OF ABDOMINAL INCISION, PACKED WITH 2/2GAUZE PER DR BREWSTER ORDER, PURULOUS DRAINAGE NOTED. STERI STRIPS REMAIN IN PLACE. ABDOMEN REMAINS FIRM AND DISTENDED, BS ACTIVE *4, BM THIS AM. PT REMAINS INCONTINENT OF BOWEL AND BLADDER, PT REPOSITONED Q2H. PT UP WITH 1 MIN-MOD ASSIST, GB AND WALKER AND TOLERATED WELL. Q1H VISUAL CHECKS, CALL LIGHT WITHIN REACH. FALL PRECAUTIONS IN PLACE
[2019-06-22 19:30] VITALS: BP 128/75
--- NOTE | 2019-06-23 04:05 | NUR ---
assumed care at approx 1900 evening 06/22. pt lying in bed with head of bed elevated at change of shift. pt sleeping at beginnning of shift however woke up approx 2100. pt took hs meds with applesauce tolerating well. dressing change to abdomen incision as ordered. pt assisted with turn q2 and repositioning. bed alarm on and call light in reach. will continue to monitor.
[2019-06-23 08:15] LABS: INR 2.6; PROTIME 27.2 Seconds (9.3-11.4)
[2019-06-23 09:21] VITALS: BP 142/73
--- NOTE | 2019-06-23 13:53 | NUR ---
ASSUMED CARES AT 0700. PT AWAKE, ALERT AND ORIENTED *4. C/O LOW BACK AND LEFT KNEE PAIN, LIDOCAINE PATCH APPLIED TO LOWER BACK, VOLTAREN GEL TO LEFT KNEE. ABDOMINAL INCISION REMAINS INTACT, PACKING CHANGED ON MID INCISION OPENING. ABDOMEN SOFT BUT DISTENDED, BS ACTIVE, MED BM THIS AM. PT VOIDING PER URINAL AND *1 INCONTINENT EPISODE, URINE IS DARK YELLOW AND CLEAR. PT UP WITH 1 MIN ASSIST, GB AND WALKER AND TOLERATED WELL. Q1H VISUAL CHECKS. CALL LIGHT WITHIN REACH. FALL PRECAUTIONS IN PLACE
[2019-06-23 21:10] VITALS: BP 149/81
[2019-06-24 04:52] LABS: INR 1.9; PROTIME 20.1 Seconds (9.3-11.4)
[2019-06-24 08:00] VITALS: BP 130/78
--- NOTE | 2019-06-24 18:24 | NUR ---
ASSUMED CARE OF PT AT 0715. PT IS A&OX4 AND VITAL SIGNS ARE STABLE. ABDOMINAL WOUND PACKING CHANGED. WOUND IS RED, SMALL AMOUNTS OF SEROSANGUINEOUS DRAINAGE ON DRESSING, CLEANED WITH SALINE. STERI STRIPS TO ABDOMINAL INCISION INTACT. STRAIGHT CATH COMPLETED Q6H PER ORDERS. +3 PITTING EDEMA TO BLE. FALL PRECAUTIONS IN PLACE AND NURSING WILL CONTINUE TO MONITOR.
[2019-06-24 19:20] VITALS: BP 128/59
[2019-06-25 04:48] LABS: HEMATOCRIT 27.9 % (42.0-52.0); HEMOGLOBIN 9.2 gm/dL (14.0-18.0); MCH 33.2 pg (26.0-34.0); MCV 100.6 fL (80.0-100.0); RBC 2.78 mil/uL (4.50-6.00); RDW 14.9 % (10.5-14.5); WBC 6.1 thou/uL (4.0-11.0)
[2019-06-25 04:56] LABS: CALCIUM 8.6 mg/dL (8.5-10.1); CREATININE 0.8 mg/dL (0.7-1.3); MAGNESIUM 1.7 mg/dL (1.8-2.4)
[2019-06-25 05:05] LABS: INR 1.5; PROTIME 16.1 Seconds (9.3-11.4)
--- NOTE | 2019-06-25 05:19 | NUR ---
ASSUMED PT CARE AT 1900. PT A/OX4, VITAL SIGNS STABLE, ASSESSMENT CHARTED. PAIN ADEQAUTELY MANAGED WITH PAIN MEDICATION. ABDOMINAL DRESSING CHANGE COMPLETED. BLADDER SCAN AND STRAIGHT CATH PERFORMED. PT RESTED WELL THROUGH THE NIGHT. NO ACUTE CHANGES. PROGRESSING TOWARD PLAN OF CARE. WILL CONTINUE TO MONITOR.
[2019-06-25 10:40] VITALS: BP 114/59
--- NOTE | 2019-06-25 19:20 | NUR ---
ASSUMED CARE OF PT AT 0715. PT IS A&OX4 AND VITAL SIGNS ARE STABLE. PT REPORTS PAIN IN LOWER BACK AND RLE, MANAGED WITH PAIN PATCHES AND OINTMENTS, PARTICIPATED IN SCHEDULED THERAPIES. ORDERS OBTAINED FOR SAMUEL CATHETER PLACEMENT FOR URINARY RETENTION, PLACED AT 1400, RETURN OF 1200ML YELLOW URINE, SECURED TO LEG. LEG BAG ORDERED FOR PT FOR USE DURING DAYS. WOUND TO MIDLINE INCISION PACKED PER ORDERS. YASMIN HOSE PLACED TO BLE FOR +3 PITTING EDEMA. MIRALAX HELD DUE TO SEVERAL LOOSE INCONTINENT STOOLS. FAMILY BROUGHT NEW BOTTLE OF HOME MEDICATION, MEDICATION VERIFIED BY PHARMACY. PHARMACIST RECOMMEDED THAT PT TAKE MISSED AM DOSE THIS AFTERNOON. PT REFUSED AND STATES THAT HE WOULD RATHER START TOMORROW MORNING AGAIN. FALL PRECAUTIONS IN PLACE AND NURSING WILL CONTINUE TO MONITOR.
[2019-06-25 19:32] VITALS: BP 142/81
--- NOTE | 2019-06-26 01:33 | NUR ---
ASSESSMENT COMPLETED. PT ALERT AND ORIENTED WITH SOME FORGETFULNESS. C/O PAIN TO HEELS WELL BOTTOM. TEDS TAKEN OFF AND BLE ELEVATED. PT ALSO REPOSITIONED FROM SIDE TO SIDE TO OFFLOAD BOTTOM.HE SWALLOWS MEDS OKAY. LARGE AMTS OF OUTPUT IN SAMUEL CATHETER.PT APPEARS TO BE IN NO DISTRESS.ROOM AIR AND SATTING OKAY.CALL LIGHT WITHIN REACH.
[2019-06-26 06:39] LABS: INR 1.4; PROTIME 14.7 Seconds (9.3-11.4)
[2019-06-26 07:13] VITALS: BP 110/59
--- NOTE | 2019-06-26 13:49 | NUR ---
team meeting, recommendation. pt has rmaos cath now with blood in urine, abd wound dressing. going to need skilled. will discuss with pt and family on snf option for 8th
--- NOTE | 2019-06-26 15:30 | NUR ---
ASSUMED CARES AT 0700. PT AWAKE, ALERT AND ORIENTED*4 BUT FORGETFUL. VITALS REMAIN STABLE. C/O LOWER BACK, ROMY KNEE AND BUTTOCK PAIN, VOLTAREN GEL APPLIED, LIDODERM PATCH IN PLACE AND ACETAMINOPHEN ADMINISTERED NEEDED. ABDOMEN INCISION CLEANED AND PACKING CHANGED, BRIGHT RED DRAINAGE NOTED. SAMUEL REMAINS INTACT AND PATENT, HEMATURIA NOTED AND HOSPITALIST NOTIFIED. PT CONTINUES TO HAVE BLE EDEMA 3+, PULSES ARE 2/2. EXTREMITIES ELEVATED. LEFT FOOT BLISTER COVERED WITH GAUZE IT WAS DRAINING, WILL CONTINUE TO MONITOR. PT UP WITH 1 MOD ASSIST, GB AND WALKER AND TOLERATED WELL. Q1H VISUAL CHECKS. CALL LIGHT WITHIN REACH. FALL PRECAUTIONS IN PLACE
[2019-06-26 19:03] VITALS: BP 135/77
--- NOTE | 2019-06-27 02:36 | NUR ---
ASSUMED CARE OF PT @ 1900 PT ASSESSED AT START OF SHIFT ALERT AND ORIENTED WITH FORGETFULNESS. C/O OF PAIN IN LOWER [place], BUTTOCK AND KNEE. TYLENOL GIVEN AND SCHEDULED DICLOFENAC GEL APPILED. PT REPOSITIONED FRQ FOR COMFORT. PADED BED RAILS FOR SEIZURE PREC. FOLLEY CATH INTACT AND YELLOW URINE NOTED. BOOTS ON BLE FOR PRESSURE RELIEF. FALL PREC IN PLACE AND CALL LIGHT WITHIN REACH, HOURLY ROUNDING DONE AND WILL CONT WITH POC TILL EOS.
[2019-06-27 05:04] LABS: HEMATOCRIT 30.1 % (42.0-52.0); HEMOGLOBIN 9.8 gm/dL (14.0-18.0); MCH 32.8 pg (26.0-34.0); MCHC 32.5 g/dL (28.0-37.0); MCV 100.8 fL (80.0-100.0); PLATELET COUNT 268 thou/uL (150-400); RBC 2.98 mil/uL (4.50-6.00); RDW 14.8 % (10.5-14.5); WBC 6.4 thou/uL (4.0-11.0)
[2019-06-27 05:13] LABS: INR 1.5; PROTIME 15.9 Seconds (9.3-11.4)
[2019-06-27 05:16] LABS: CALCIUM 8.5 mg/dL (8.5-10.1); CREATININE 0.9 mg/dL (0.7-1.3); MAGNESIUM 1.8 mg/dL (1.8-2.4)
[2019-06-27 06:32] LABS: ABSOLUTE NEUTROPHILS 4.6 thou/uL (1.4-8.2)
[2019-06-27 06:33] LABS: ANISOCYTOSIS 1+; LARGE PLATELETS FEW; MACROCYTES 1+; PLATELET ESTIMATE NORMAL; POIKILOCYTOSIS 1+
--- NOTE | 2019-06-27 08:00 | NUR ---
received voice message from monica dozier rt snf location " 1st cp, 2nd [facility], 3 [facility], 4 [facility], 5 [facility], 6 [facility], 7 [facility], 8 [facility], 10 [facility]. referral to be sent for anticipated dc on to skilled
--- NOTE | 2019-06-27 10:20 | NUR ---
DISCHARGE PLANNING. ANTICIPATED DISCHARGE PLANNED FOR 06/29 PER UNIT CM. POST ACUTE RECOMMENDED AT DISCHARGE. PATIENT REFERRAL FAXED TO [facility]. CALL PLACED TO KEN NOTIFY, CP ADMISSIONS. KEN TO REVIEW AND NOTIFY CM. FOLLOWING.
--- NOTE | 2019-06-27 11:27 | NUR ---
ASSUMED CARES AT 0700. PT AWAKE, ALERT AND ORIENTED*4 BUT FORGETFUL. C/O LOWER BACK PAIN AND RIGHT KNEE PAIN. PAIN MEDICATION ADMINISTERED NEEDED. VITALS REMAIN STABLE. ABDOMEN REMAINS SOFT BUT DISTENDED, ABDOMINAL INCISION CLEANED, PACKED AND DRESSING CHANGED. SAMUEL REMAINS INTACT AND PATENT, URINE IS BASHIR -DARK YELLOW. CONTINUES TO HAVE BLE EDEMA, 3+. EXTREMITIES ELEVATED. BLISTER ON LEFT FOOT REMAINS INTACT, DRESSING CHANGED. PT UP WITH 1 MIN-MOD ASSIST, GB AND WALKER AND TOLERATED WELL. Q1H VISUAL CHECKS. CALL LIGHT WITHIN REACH. FALL PRECAUTIONS IN PLACE
--- NOTE | 2019-06-27 13:10 | NUR ---
Nutrition followup: pt recent intake 75-100% of meals. Overall intake improved. Drinks 2-3 ensures/day. RD will decrease to once daily due to improved intake. No new weight. Pt continues on lasix with 3+ BLE edema. RD continues to recommend adding Na+ restriction to diet order. Planned D/C on 06/29. Change to low nutrition risk.
--- NOTE | 2019-06-27 13:12 | NUR ---
Nutrition: Pt with 3+ LE edema on lasix. REC add Na+ restriction to diet order.
[2019-06-27 19:53] VITALS: BP 133/73
--- NOTE | 2019-06-28 04:40 | NUR ---
assumed care at approx 1900 evening 06/27. pt lying in bed with head of bed elevated dozing off and on. ramos to dd with pink colored urine in bag. abdominal incision with drainage in packed area changed and applied new packing. prafo boots put on pt. pt took hs meds with applesauce tolerating well. pt appears to be sleeping soundly with hourly rounding checks. bed alarm on and call light in reach. will continue to monitor.
[2019-06-28 06:22] LABS: INR 1.6; PROTIME 16.3 Seconds (9.3-11.4)
--- NOTE | 2019-06-28 10:35 | NUR ---
WOUND CARE NOTE: DURING OT ADL'S IT WAS NOTED THAT BLISTER AT DORSUM OF LEFT FOOT NEAR TOES HAS BROKEN OPEN AND IS SLOWLY DRAINING SEROUS FLUID. WOUND WAS CLEANED WITH SOAP AND WATER IN SHOWER AND MEASUREMENTS ARE FOLLOWS: REDDENED AREA IS 4.5 CM BY 2.5, AND BLISTER IS RAISED APPROX 1 CM FROM DORSUM OF FOOT WITH RAISED AREA MEASURING 3.9 CM BY 2 CM. PT REPORTS "A LITTLE" PAIN AT SITE. AREA WAS VISUALIZED BY MARYJANE MEZA NP, AND ORDERS FOR WOUND CARE WERE REQUESTED. AREA WAS DRESSED WITH A GAUZE PAD AND CLING WRAP AND REPORT WAS GIVEN TO IRAJ HAYWOOD RN.
--- NOTE | 2019-06-28 10:36 | NUR ---
chart copy requested for dc to skilled tomorrow. bedside nurse to call report to [facility] [phone]. pt able to transport by wheel chair van.
[2019-06-28 14:34] VITALS: BP 119/60
--- NOTE | 2019-06-28 18:33 | NUR ---
ASSUMED CARE OF PT AT 0715. PT IS A&OX4 AND VITAL SIGNS ARE STABLE. PT REPORTS PAIN IN LOWER BACK AND RLE, MANAGED WITH PAIN PATCHES AND OINTMENT. WOUND CARE COMPLETED TO MIDLINE PER ORDERS. BLISTER ON TOP OF LEFT FOOT DRAINING, CLEANED WITH SALINE AND BOARDER FOAM DRESSING PLACED OVER SITE, WOUND CONSULT ORDERED. FOELY CATHETER IN PLACE AND DRAINING RED URINE APROPRIATELY, SECURED TO LEG. PARTICIPATED IN SCHEDULED THERAPIES. FALL PRECAUTIONS IN PLACE AND NURSING WILL CONTINUE TO MONITOR.
[2019-06-28 20:50] VITALS: BP 122/67
--- NOTE | 2019-06-29 04:08 | NUR ---
RECEIVED REPORT FROM OFFGOING DAY NURSE, ASSUMED CARE @ 19:20 ON 06/28/19. IN BED, RESPONDS TO STAFF NURSES UPON APROACH. AWAKE, ALERT AND ORIENTED X 4, BEL[place] NOTED. DRESSING ON MIDLINE C/D/I, POCKET NEAR UMBILICUS PACKED WITH GAUZE. 4X4 DRESSING ON DORSAL L FOOT C/D/I. +2 PITTING EDEMA NOTED TO LOWER EXTREMITIES, YASMIN HOSE ON LOWER EXTREMITIES. VOLTARIN GEL APPLIED ORDERED, LODOCAIN PATCH REMOVED FROM R KNEE AND LOWER BACK. SAMUEL CATH DRAINING TINTED URINE TO GRAVITY. MEDS TAKEN WHOLE IN APPLESAUCE. BED IN LOW POSITION, BED ALARM SET, CALL LIGHT WITHIN REACH, WILL CONTINUE TO MONITOR Q 1 HOUR FOR PATIENT SAFETY.
[2019-06-29 05:17] LABS: INR 2.1; PROTIME 21.8 Seconds (9.3-11.4)
[2019-06-29 09:38] VITALS: BP 123/51
--- NOTE | 2019-06-29 11:25 | NUR ---
WOUND CARE assess wound w/ MARYJANE TAPPER HAND, blister left forefoot, scant pinkish drainage, pedal edema noted, pt and staff states does not like tubigrip stocking, willing to try felice wrap. encouraged pt to elevate feet more, cooperative, staffing rn GARLAND informed of care. Photo taken and place in chart, both foot and abd wound. see process interventions for wound details. licensed staff mft to verify w/ surgeon abd wound care prior to dc recommendations; to foot: cleanse w/ wound cleanser or ns, apply xeroform gauze, foam drsg, kerlix, felice wrap daily and prn
--- NOTE | 2019-06-29 12:45 | NUR ---
sent message to md to completed dc meds. pt to be dc today to [facility].
[2019-06-29] MEDS ORDERED: HOME MEDICATION PO (12:52)
[2019-06-29] MEDS ORDERED: PEPCID20 MG PO (12:52)
[2019-06-29] MEDS ORDERED: LASIX 40 MG TAB40 M1 PO (12:52)
[2019-06-29] MEDS ORDERED: MELATONIN5 M1 PO (12:52)
[2019-06-29] MEDS ORDERED: COLACE 100 MG100 MG PO (12:52)
[2019-06-29] MEDS ORDERED: ACIDOPHILUS1 EAC4 PO (12:52)
[2019-06-29] MEDS ORDERED: HYDROCODON-ACE1 EAC7 PO (12:52)
[2019-06-29] MEDS ORDERED: VOLTAREN GEL 1100 G1 TOP (12:52)
[2019-06-29] MEDS ORDERED: ACETAMINOPHEN325 M1 PO (12:52)
[2019-06-29] MEDS ORDERED: LIDOPATCH1 EACH TRANSDERM (12:52)
[2019-06-29] MEDS ORDERED: MIRALAX17 GM PO (12:52)
[2019-06-29] MEDS ORDERED: METHOTREXATE 22.5 MG PO (12:52)
[2019-06-29] MEDS ORDERED: FLOMAX0.4 MG PO (12:52)
--- NOTE | 2019-06-29 18:48 | NUR ---
Awake and alert X4. Looking forward to transfer to [facility] facility. States pain and anxiety are about a 3. Breath sounds clear t/o, bilaterally equal and slightly diminished in lower lobes. Reg HR auscultated. Color pale pink with brisk capillary refill and palpable peripheral pulses. +3-4 edema in lower extremities. Active bowel sounds over soft, rounded abdomen. Abdominal incision with steristrips, healing except for 1.5 cm circular wound approximately 1 cm deep. Cleaned with NS and repacked with nugauze and covered with nonadherant drsg. Minimal serous drg. Hematuria per ramos cathetar, emptied of 1750 cc prior to DC. Wound per L foot with small amt serosanguious drg approximately 3 cm in diameter, redressed per wound RN. 1700 Discharged via transport [place] to [facility] after report called. Daughter Gin at side to [place] but then drove seperately. Notified daughter Natalia via phone of transfer per pt. request.
== END 2019-06-29 18:30 | DRG 947 ==
PROVIDERS: Internal Medicine; Nurse Practitioner; Nurse Practitioner Adult Health; ADMIT Physical Medicine & Rehabilitation
DX: R53.81 Other malaise (principal); A41.9 Sepsis, unspecified organism; K65.9 Peritonitis, unspecified; K65.1 Peritoneal abscess; J96.90 Respiratory failure, unspecified, unspecified whether with hypoxia or hypercapnia; J18.9 Pneumonia, unspecified organism; K56.7 Ileus, unspecified; I48.20 Chronic atrial fibrillation, unspecified; D62 Acute posthemorrhagic anemia; E87.2 Acidosis; E46 Unspecified protein-calorie malnutrition; T81.31XA Disruption of external operation (surgical) wound, not elsewhere classified, initial encounter; T81.49XA Infection following a procedure, other surgical site, initial encounter; T83.83XA Hemorrhage due to genitourinary prosthetic devices, implants and grafts, initial encounter; I25.10 Atherosclerotic heart disease of native coronary artery without angina pectoris; Z95.2 Presence of prosthetic heart valve; M06.9 Rheumatoid arthritis, unspecified; Z79.01 Long term (current) use of anticoagulants; R41.9 Unspecified symptoms and signs involving cognitive functions and awareness; F41.8 Other specified anxiety disorders; G40.909 Epilepsy, unspecified, not intractable, without status epilepticus; G25.81 Restless legs syndrome; E78.5 Hyperlipidemia, unspecified; G89.29 Other chronic pain; M54.9 Dorsalgia, unspecified; K57.90 Diverticulosis of intestine, part unspecified, without perforation or abscess without bleeding; R31.9 Hematuria, unspecified; Y83.8 Other surgical procedures as the cause of abnormal reaction of the patient, or of later complication, without mention of misadventure at the time of the procedure; Y84.6 Urinary catheterization as the cause of abnormal reaction of the patient, or of later complication, without mention of misadventure at the time of the procedure; Z95.1 Presence of aortocoronary bypass graft; Z95.0 Presence of cardiac pacemaker; Z88.6 Allergy status to analgesic agent; Z87.891 Personal history of nicotine dependence; Z68.29 Body mass index [BMI] 29.0-29.9, adult; Y92.89 Other specified places as the place of occurrence of the external cause; R33.9 Retention of urine, unspecified
CPT/HCPCS: 10112

== ENCOUNTER → 2019-09-24 | Outpatient (CLI) | payer OTHER ==
[~2019-09-24] VITALS: Ht 175.3 cm; Wt 77.1 kg
[~2019-09-24] MED LIST changes: +ACETAMINOPHEN325 M1 PO; +ACIDOPHILUS1 EAC4 PO; +ATIVAN1 M1 PO; +CALCIUM + VITA1 EACH PO; +COLACE 100 MG100 MG PO; +FISH OIL 1,0001 EAC9 PO; +FLOMAX0.4 MG PO; +FOLIC ACID1 MG PO; +HOME MEDICATION PO; +HYDROCODON-ACE1 EAC7 PO; +LASIX 40 MG TAB40 M1 PO; +LIDOPATCH1 EACH TRANSDERM; +LOVENOX80 MG/0.8 SUBQ; +MELATONIN5 M1 PO; +METHOTREXATE 22.5 MG PO; +MIRALAX17 GM PO; +MULTIVITAMINS PO; +PEPCID20 MG PO; +REMERON15 M2 PO; +VOLTAREN GEL 1100 G1 TOP
== END | disposition home or self-care (01) ==
LOC: GI 09:35
DX: Z12.11 Encounter for screening for malignant neoplasm of colon (principal); K57.30 Diverticulosis of large intestine without perforation or abscess without bleeding; I10 Essential (primary) hypertension; E78.00 Pure hypercholesterolemia, unspecified; M10.9 Gout, unspecified; F32.9 Major depressive disorder, single episode, unspecified; F41.9 Anxiety disorder, unspecified; M06.9 Rheumatoid arthritis, unspecified; Z98.890 Other specified postprocedural states; Z79.899 Other long term (current) drug therapy; Z95.1 Presence of aortocoronary bypass graft; Z79.01 Long term (current) use of anticoagulants; Z95.2 Presence of prosthetic heart valve; Z87.891 Personal history of nicotine dependence; Z95.0 Presence of cardiac pacemaker; Z98.0 Intestinal bypass and anastomosis status; Z88.8 Allergy status to other drugs, medicaments and biological substances
CPT/HCPCS: 62110; 62900

== ENCOUNTER 2020-10-14 10:10 | Inpatient (IN) | payer OTHER ==
[~2020-10-14] VITALS: Ht 177.8 cm; Wt 95.5 kg
[2020-10-14 10:11] VITALS: BP 111/59
[2020-10-14 10:43] LABS: ABSOLUTE NEUTROPHILS 6.8 thou/uL (1.4-8.2); BASOPHILS 0.2 % (0.0-2.0); HEMATOCRIT 38.6 % (42.0-52.0); HEMOGLOBIN 12.6 gm/dL (14.0-18.0); LYMPHOCYTES 7.2 % (24.0-44.0); MCH 32.9 pg (26.0-34.0); MCHC 32.7 g/dL (28.0-37.0); MCV 100.8 fL (80.0-100.0); MONOCYTES 5.6 % (1.0-8.0); PLATELET COUNT 200 thou/uL (150-400); RBC 3.83 mil/uL (4.50-6.00); RDW 13.2 % (10.5-14.5); WBC 7.8 thou/uL (4.0-11.0)
[2020-10-14 10:58] LABS: ANION GAP 9 mmol/L (7-16); BUN 35 mg/dL (7-18); CALCIUM 7.9 mg/dL (8.5-10.1); CHLORIDE 108 mmol/L (98-107); CO2 23 mmol/L (21-32); CREATININE 1.1 mg/dL (0.7-1.3); GLUCOSE 113 mg/dL (74-106); POTASSIUM 4.1 mmol/L (3.5-5.1); SODIUM 140 mmol/L (136-145)
[2020-10-14 11:08] LABS: ALBUMIN 2.6 g/dL (3.4-5.0); SGOT 89 U/L (15-37); SGPT 50 U/L (30-65); TOTAL BILIRUBIN 0.5 mg/dL (0.2-1.0); TOTAL PROTEIN 7.1 g/dL (6.4-8.2); TROPONIN-I <0.06 ng/mL (<0.06)
[2020-10-14] MEDS ORDERED: FLOMAX0.4 MG PO (11:08)
[2020-10-14] MEDS ORDERED: ATIVAN1 M1 PO (11:08)
[2020-10-14] MEDS ORDERED: JANTOVEN5 MG PO (11:09)
[2020-10-14] MEDS ORDERED: NEURONTIN100 MG PO (11:11)
[2020-10-14] MEDS ORDERED: ABILIFY 5 MG TAB5 MG PO (11:11)
[2020-10-14 11:19] LABS: PROTIME 47.6 Seconds (9.3-11.4)
[2020-10-14 11:25] LABS: INR 4.6
[2020-10-14 12:42] LABS: BE(vivo) -2.5 mmol/L (-2 to +3); HCO3 20.5 mmol/L (22.0-26.0); PCO2 30.2 mmHg (35.0-45.0); PO2 75.7 mmHg (80.0-100.0); pH 7.449 (7.360-7.450); sO2 95.9 % (92.0-98.0)
--- NOTE | 2020-10-14 12:48 | EKG ---
[place] [address] [address] [facility] [email or web address] [address] ELECTROCARDIOGRAM REPORT Name: SUNDAR NOBLES Saji [facility] [id number] Admission: 10/14/20 Attend Phys: Discharge: Date of : 39 Report #: [id number] [facility] ED Test Date: 2020-10-14 Test Time: 10:20:38 Pat Name: SUNDAR NOBLES Department: Room: Gender: M Crocheter: : 1935 Requested By: Shy Madison Order Number: [id number] MD: Wil Martínez Measurements Intervals [place] Rate: 70 P: 0 WA: 79 QRS: -76 QRSD: 142 T: 74 QT: 426 QTc: 460 Interpretive Statements Ventricular-paced complexes No further analysis attempted due to paced rhythm Compared to ECG 05/29/2019 19:07:14 No significant changes Electronically Signed On 10-14-2020 12:48:09 REGULATORY AGENCY DIRECTOR by Wil Martínez [email or web address] <ELECTRONICALLY SIGNED> By: Wil Martínez MD, [facility] 10/14/20 1248 1020 1020 Wil Martínez MD, FACC /EPI
[2020-10-14 13:58] LABS: URINE BILIRUBIN NEGATIVE (Negative); URINE BLOOD TRACE (Negative); URINE CLARITY CLEAR; URINE COLOR YELLOW; URINE GLUCOSE-RANDOM* NEGATIVE (Negative); URINE KETONES 1+ (Negative); URINE LEUKOCYTES-REFLEX NEGATIVE (Negative); URINE NITRITE-REFLEX NEGATIVE (Negative); URINE PROTEIN (DIPSTICK) 2+ (Negative); URINE SPECIFIC GRAVITY >= 1.030 (1.005-1.035); URINE UROBILINOGEN 0.2 E.U./dl (0.2-1.0)
[2020-10-14 14:00] VITALS: BP 130/64
--- NOTE | 2020-10-14 14:04 | NUR ---
DAUGHTER (TOMMIE) UPDATED ON POC AND MADE AWARE OF PT'S ADMISSION PER PT'S REQUEST.
[2020-10-14 14:17] LABS: SERUM ASSESSMENT Clear
[2020-10-14 14:24] VITALS: BP 137/64
[2020-10-14 14:32] LABS: MUCUS 0-3 Light strn/LPF (None Seen)
[2020-10-14 14:34] LABS: CASTS None Seen /LPF (None Seen); CRYSTALS None Seen /LPF (None Seen); SQUAMOUS None Seen /LPF (0-3); URINE WBC-REFLEX 0-5 Rare /HPF (0-5)
[2020-10-14 14:35] LABS: URINE RBC None Seen /HPF (0-2); WBC CLUMPS Rare (None Seen)
[2020-10-14 15:41] LABS: CHOLESTEROL 79 mg/dL (<200)
[2020-10-14 15:43] LABS: TRIGLYCERIDE 95 mg/dL (<150); VLDL 19 mg/dL (<40)
[2020-10-14 15:44] LABS: HDL CHOLESTEROL 28 mg/dL (>40); LDL CHOLESTEROL 32 mg/dL (<100); TC:HDL 2.8 Ratio (Not establshd)
[2020-10-14 15:54] VITALS: BP 124/50
--- NOTE | 2020-10-14 18:16 | NUR ---
pt expressing need to void but unable to do so. bladder scanned for approx 200cc. encouraged to drink more fluids. patient says is not uncomfortable at this time. will bladder scan again
[2020-10-14 19:09] VITALS: BP 121/70
[2020-10-15 03:55] VITALS: BP 148/76
[2020-10-15 05:46] LABS: PROTIME 50.4 Seconds (9.3-11.4)
[2020-10-15 05:54] LABS: INR 4.9
[2020-10-15 05:55] LABS: ALBUMIN 2.5 g/dL (3.4-5.0); CALCIUM 8.1 mg/dL (8.5-10.1); CREATININE 1.3 mg/dL (0.7-1.3); PHOSPHORUS 2.3 mg/dL (2.5-4.9)
--- NOTE | 2020-10-15 05:56 | NUR ---
ABELINO FROM LAB CALLED WITH CRITICAL LAB OF INR 4.9. PROTOCOL FOLLOWED.
[2020-10-15 07:57] VITALS: BP 133/85
[2020-10-15 12:00] VITALS: BP 111/59
[2020-10-15 13:39] LABS: BE(vivo) -0.1 mmol/L (-2 to +3); HCO3 23.4 mmol/L (22.0-26.0); PCO2 34.6 mmHg (35.0-45.0); PO2 59.7 mmHg (80.0-100.0); pH 7.448 (7.360-7.450); sO2 92.1 % (92.0-98.0)
--- NOTE | 2020-10-15 13:55 | NUR ---
INITIAL ASSESSMENT: CRYSTAL reviewed chart and spoke with nursing and attending physician. Pt was admitted from home due to pneumonia. Pt placed in Enhanced Isolation due to positive COVID test. Pt febrile and on IV abx. Pt is on 2L of O2. ID and pulmonology consulted. SW placed call to pt's room. Pt unable to hear well over the phone. SW left voice message for pt's son, Donavon. CRYSTAL spoke with pt's dtr, Dori, via phone. Introduced role of SW. Pt has been living alone in his house prior to admission. Pt had COVID test on 10/12, which was negative. Pt went to stay with his dtr, Natalia, from Tuesday until admitted to the hospital. Pt has a cane to use when in the community. Pt's dtr states pt has about 4 steps inside the home. Pt has Meals on Wheels and family lives nearby and is able to assist as needed. Pt has been to [facility] and [facility] in the past. Pt has used HH. Unsure of provider. Pt's PCP is Dr. Dru Treadwell. Mickey dixon ordered and will evaluate when pt is able to participate. SW is following to assist as needed with discharge planning.
[2020-10-15 15:29] VITALS: BP 102/59
[2020-10-15 15:49] VITALS: BP 110/63
--- NOTE | 2020-10-15 17:49 | NUR ---
RN ASSUMED PT'S CARE AT 0700AM, PT IS A&2 ( PERSON AND PLACE) , RN HAS CALLED DR TO REPORT PT'S LOW O2 87-89% WITH O2 10L/MIN/NC, NEW ORDER RECEIVED , DR PERSAUD AND ID HAVE CONSULTS, NEW ORDER RECEIVED, PT HAS STARTED HIGH FOLOW O2 40L/MIN WIHT O2 50% TO KEEP O2SAT AT 92-94%, PT STARTS COVID TREATMENT , PT HAS MEDICATION FOR FEVER, PT DENIES PAIN AND SOB BY THIS TIME.
[2020-10-15 19:22] VITALS: BP 124/79
[2020-10-16 03:20] VITALS: BP 131/82
[2020-10-16 06:02] LABS: HEMATOCRIT 38.2 % (42.0-52.0); HEMOGLOBIN 12.6 gm/dL (14.0-18.0); MCH 33.1 pg (26.0-34.0); MCHC 32.9 g/dL (28.0-37.0); MCV 100.7 fL (80.0-100.0); RBC 3.79 mil/uL (4.50-6.00); RDW 13.4 % (10.5-14.5); WBC 5.6 thou/uL (4.0-11.0)
[2020-10-16 06:20] LABS: ALBUMIN 2.2 g/dL (3.4-5.0); CALCIUM 8.2 mg/dL (8.5-10.1); CREATININE 1.2 mg/dL (0.7-1.3); DIRECT BILIRUBIN 0.1 mg/dL (<0.1-0.2); PHOSPHORUS 2.7 mg/dL (2.5-4.9); POTASSIUM 3.5 mmol/L (3.5-5.1); TOTAL BILIRUBIN 0.4 mg/dL (0.2-1.0); TOTAL PROTEIN 7.1 g/dL (6.4-8.2)
[2020-10-16 07:20] VITALS: BP 127/82
--- NOTE | 2020-10-16 07:36 | NUR ---
PROGRESS PT A/O X4 ON OPTIFLOW AT 10 LITERS, O2 SATS AT 89 TO 92, DIFFICULTY KEEPING IT ABOVE 90 RT TO BRING UP BIPAP. IVF'S INFUSING ORDERED, TOOK MEDS CRUSHED IN APPLESAUCE TOOK WITH NO CHOKING NOTED. REPOSITIONED NEEDED, SCD'S IN PLACE RT TX'S ORDERED CONTINUE TO MONITOR.
--- NOTE | 2020-10-16 10:47 | HC ---
[facility] [place] [address] CONSULTATION Name: SUNDAR NOBLES Room #: 354-P ADM IN M.R.#: [id number] Admission: 10/14/20 Attend Phys: Daksha Ch Discharge: Date of : 39 Report #: [id number] THIS REPORT FOR: cc: Mich Wheeler MD, Parveen K. MD Barry, Joseph W. MD ~ DATE OF SERVICE: 10/15/2020 INFECTIOUS DISEASE CONSULTATION ATTENDING PHYSICIAN: Daksha Ch MD REASON FOR EVALUATION: COVID-19 infection, complicated by pneumonitis and respiratory failure. HISTORY OF PRESENT ILLNESS: Chart reviewed, patient examined. This is an 85-year-old gentleman with fairly significant medical history, has known atherosclerotic coronary artery disease, previous valve replacements, some seizure disorder as well as rheumatoid arthritis, who initially admitted with lower extremity pain and discomfort. Apparently, he has had progressive dyspnea and weakness over the course of the last few days. He was evaluated, apparently had a negative COVID test recently 3 days prior to admission. On evaluation, chest x-ray showed patchy infiltrates, suspected acute on chronic. ABGs: pH 7.449, pCO2 of 30.2, pO2 of 75.7 on 2 liters. Urinalysis was generally unrevealing. He did have a positive Paredes-19 PCR. Blood cultures are sterile thus far. He is on supplemental oxygen at 40 liters per minute, FiO2 of 50% via Optiflow. ALLERGIES: LISTED TO MORPHINE. CURRENT MEDICATIONS: Include dexamethasone 8 mg daily, aspirin, tamsulosin, aripiprazole, levetiracetam, Zosyn, acetaminophen, zolpidem, p.r.n. analgesics and antiemetics. PAST MEDICAL HISTORY: As described above, coronary artery disease, previous aortic bypass grafting, mitral and aortic valve replacements, depression, anxiety, seizure disorder, atrial fibrillation, restless leg syndrome, rheumatoid arthritis. SOCIAL HISTORY: Former smoker. No ethanol. No illicit drug use. FAMILY HISTORY: Noncontributory. REVIEW OF SYSTEMS: Otherwise, unremarkable. [facility] [address] [place] [address] CONSULTATION Name: SUNDAR NOBLES Room #: 354-P [facility] IN ..#: [id number] Admission: 10/14/20 Attend Phys: Daksha Ch Discharge: Date of : 39 Report #: [id number] PHYSICAL EXAMINATION: GENERAL: He appears somewhat chronically ill and undernourished. He is mildly encephalopathic. He is in moderate distress. VITAL SIGNS: Temperature 100.6, more recently overnight 101.5, pulse 70, respirations 28, blood pressure 111/59. SKIN: Warm, dry, no rashes. HEENT: Normocephalic. Extraocular muscles intact. Nasal cannula in place. NECK: Supple. LUNGS: Few scattered coarse breath sounds. HEART: Irregular. I do not appreciate a murmur. ABDOMEN: Mildly distended, soft, nontender, no peritoneal signs. GENITOURINARY AND RECTAL: Deferred. LABORATORY DATA: Most recent ABG: pH 7.448, pCO2 of 34.6, pO2 of 59.7, FiO2 of 50% Optiflow, 50 liters per minute. Chest x-ray: Diffuse interstitial prominence, right mid lung and left basilar alveolar infiltrates. Urine cultures sterile thus far. Blood cultures negative. Electrolytes: Sodium 143, potassium 4.0, chloride 108, bicarbonate is 25, anion gap of 10, BUN and creatinine 27 and 1.3, glucose of 120. TSH 1.842. Lactic acid 1.7. Liver function is otherwise unremarkable. Albumin of 2.6, total protein 7.1. ASSESSMENT AND PLAN: COVID-19 infection, complicated by pneumonitis and respiratory failure. Clearly, he continues to require increased oxygen supplementation. We will initiate regimen directed against coronavirus including remdesivir, ivermectin, as well as Actemra in addition to vitamin combination. Continue empiric therapy with Zosyn. He remains quite tenuous at this point and at risk for further deterioration. Monitor expectantly. <ELECTRONICALLY SIGNED> By: Daniel Lopes MD 10/16/20 1047 1419 1455 Daniel Lopes MD /nt
--- NOTE | 2020-10-16 13:23 | NUR ---
ASSUMED CARE AT 0700. PATIENT'S DAUGHTER, TORREY WAS CONTACTED AND SPOKEN TO FROM [id number] AND SHE WAS UPDATED AND EDUCATED ON THE PATIENT'S CONDITION AND PLAN OF CARE.
[2020-10-16 16:25] VITALS: BP 131/72
[2020-10-16 21:17] VITALS: BP 141/77
[2020-10-17] VITALS (10 sets, daily range): BP systolic 120–167; BP diastolic 57–90
[2020-10-17 04:45] LABS: HEMATOCRIT 38.6 % (42.0-52.0); HEMOGLOBIN 12.5 gm/dL (14.0-18.0); MCH 32.8 pg (26.0-34.0); MCHC 32.4 g/dL (28.0-37.0); RBC 3.82 mil/uL (4.50-6.00); WBC 13.5 thou/uL (4.0-11.0)
[2020-10-17 05:00] LABS: INR 3.9; PROTIME 40.8 Seconds (9.3-11.4)
[2020-10-17 05:12] LABS: ALBUMIN 2.3 g/dL (3.4-5.0); CALCIUM 8.5 mg/dL (8.5-10.1); CREATININE 1.2 mg/dL (0.7-1.3); DIRECT BILIRUBIN 0.1 mg/dL (<0.1-0.2); PHOSPHORUS 2.4 mg/dL (2.5-4.9); POTASSIUM 3.6 mmol/L (3.5-5.1); TOTAL BILIRUBIN 0.4 mg/dL (0.2-1.0)
--- NOTE | 2020-10-17 07:40 | NUR ---
progress pt a/o x4 anxious. on bipap at 75%, had difficulty keeping sats up and pulling mask off so rt increased bipap to 80% sats staying between 90 and 92% had 2 bm's and is voiding qs. tolerating puree and nectar thick with assistance. continue to monitor.
[2020-10-17 08:53] LABS: BE(vivo) -0.4 mmol/L (-2 to +3); HCO3 22.4 mmol/L (22.0-26.0); PCO2 31.5 mmHg (35.0-45.0); sO2 89.9 % (92.0-98.0)
--- NOTE | 2020-10-17 10:47 | NUR ---
Pt ON BIPAP 75-80% WITH RR 30s-40s AND ABGs CRITICAL PER RN. Pt AWAITING TRANSFER TO ICU PER RN AND RT. Pt NOT MEDICALLY STABLE FOR PT EVALUATION AT THIS TIME. WILL NEED NEW PT CONSULT D/T TRANSFER TO HIGHER LEVEL CARE ONCE Pt IS MEDICALLY APPROPRIATE FOR PT INTERVENTIONS.
--- NOTE | 2020-10-17 15:32 | NUR ---
SW reviewed chart. Pt with orders to transfer to ICU for higher level of care. Pt remains in Enhanced Isolation due to COVID. Pt is afebrile and requiring bipap support. Pt is on IV abx and IV steroids. Pt is on Remdesivir and Ivermectin. No weekend discharge planned. SW is following to assist as needed with discharge planning.
--- NOTE | 2020-10-17 16:08 | NUR ---
VAT CONSULTED FOR CVL PLACEMENT. RIGHT IJ 6FR TL JACC CVL PLACED, PER POLICY. TRIMMED 25CM AND 7CM EXTERNAL. PT TOLERATED WELL. CXR PENDING FOR TIP LOCATION.
--- NOTE | 2020-10-17 17:54 | NUR ---
RADIOLOGY REPORT IJ TIP OVERLIES RIGHT ATRIUM. DRESSING CHANGED AND CVL PULLED BACK 4 MORE CM, TO 11CM EXTERNAL. RELEASED FOR USE, PER HOSPITAL POLICY.
--- NOTE | 2020-10-17 19:53 | NUR ---
0700 ASSUMED CARE OF PT. PT BREATHING IN 30-40'S NOTIFIED ORDERS FOR ABG. DR. PERSAUD NOTIFIED OF CRITICAL ABG.0930 ORDERS TO TX TO ICU. PT BREATHING IN 30-40'S 80% BIPAP ENTIRE DAY. NOTIFIED OF ROOM WHEN AVAILALE AROUND 1200 PER DINKEY ENGINE OPERATOR. 1500 CALLED DINKEY ENGINE OPERATOR REGARDING AVAILABITLITY OF BED. BED AVAILABLE 1645. UNABLE TO TRANSFER PT UNTIL SHIFT CHANGE. CENTRAL LINE IN PLACE. AFEBRILE. BM TODAY. INCREASED O2 NEEDS PERSIST
[2020-10-17 20:45] LABS: BE(vivo) -1.4 mmol/L (-2 to +3); HCO3 21.3 mmol/L (22.0-26.0); PCO2 30.1 mmHg (35.0-45.0); PO2 69.1 mmHg (80.0-100.0); pH 7.468 (7.360-7.450)
[2020-10-18] VITALS (48 sets, daily range): BP systolic 89–159; BP diastolic 56–93
[2020-10-18 05:06] LABS: HEMATOCRIT 36.6 % (42.0-52.0); HEMOGLOBIN 11.8 gm/dL (14.0-18.0); MCH 32.7 pg (26.0-34.0); MCHC 32.2 g/dL (28.0-37.0); MCV 101.6 fL (80.0-100.0); RBC 3.6 mil/uL (4.50-6.00); RDW 13.7 % (10.5-14.5); WBC 13.1 thou/uL (4.0-11.0)
[2020-10-18 05:44] LABS: ALBUMIN 2.2 g/dL (3.4-5.0); CALCIUM 8.1 mg/dL (8.5-10.1); CREATININE 1.1 mg/dL (0.7-1.3); DIRECT BILIRUBIN 0.1 mg/dL (<0.1-0.2); MAGNESIUM 2.2 mg/dL (1.8-2.4); PHOSPHORUS 3.1 mg/dL (2.5-4.9); POTASSIUM 3.9 mmol/L (3.5-5.1); TOTAL BILIRUBIN 0.4 mg/dL (0.2-1.0); TOTAL PROTEIN 6.4 g/dL (6.4-8.2)
--- NOTE | 2020-10-18 07:10 | NUR ---
ASSUMED CARE OF PATIENT FROM 3W. PATIENT BECAME INCREASINGLY AGITATED, ATIVAN NOT THERAPEUTIC. ORDER FOR PRECEDEX RECIEVED. PATIENT REMAINS TACHYPNIC BUT IS RESTING. FAMILY UPDATED, CODE GIVEN, ICU RULES EXPLAINED. ALL QUESTIONS ANSWERED.
[2020-10-18 10:00] LABS: INR 4.1; PROTIME 42.7 Seconds (9.3-11.4)
[2020-10-18 10:32] LABS: BE(vivo) -5.1 mmol/L (-2 to +3); HCO3 22.2 mmol/L (22.0-26.0); PCO2 49.9 mmHg (35.0-45.0); PO2 105.3 mmHg (80.0-100.0); sO2 97.1 % (92.0-98.0)
[2020-10-18 10:33] LABS: pH 7.266 (7.360-7.450)
[2020-10-18 16:14] LABS: BE(vivo) -4.1 mmol/L (-2 to +3); HCO3 23.5 mmol/L (22.0-26.0); PCO2 53.1 mmHg (35.0-45.0); PO2 72.9 mmHg (80.0-100.0); sO2 92.3 % (92.0-98.0)
[2020-10-18 16:15] LABS: pH 7.263 (7.360-7.450)
--- NOTE | 2020-10-18 19:12 | NUR ---
assumed care 0700. 0800 pt [address] [facility]. plan to intubate. intubated 0835. restraints applied, family notified per Dr. Ch. pt 1043 Dr. Perez notified of critical ABG. orders for new ABG in 4hrs. 1611 updated pt family (Donavon) regarding pt plan of care. 1620 critical abg, Dr. Perez notified. no new orders at this time. pt 100% FI02 PEEP 12. Adequate output. moderate bm today. progressing plan of care
[2020-10-19] VITALS (65 sets, daily range): BP systolic 83–139; BP diastolic 49–86
[2020-10-19 04:32] LABS: BE(vivo) -5.3 mmol/L (-2 to +3); HCO3 22.9 mmol/L (22.0-26.0); PCO2 57.3 mmHg (35.0-45.0); PO2 75.7 mmHg (80.0-100.0); sO2 92.2 % (92.0-98.0)
[2020-10-19 04:49] LABS: HEMATOCRIT 36.2 % (42.0-52.0); HEMOGLOBIN 11.6 gm/dL (14.0-18.0); MCH 32.6 pg (26.0-34.0); RBC 3.55 mil/uL (4.50-6.00); WBC 19.2 thou/uL (4.0-11.0)
[2020-10-19 05:09] LABS: ALBUMIN 2.1 g/dL (3.4-5.0); CALCIUM 7.5 mg/dL (8.5-10.1); DIRECT BILIRUBIN 0.2 mg/dL (<0.1-0.2); PHOSPHORUS 4.7 mg/dL (2.5-4.9); POTASSIUM 4.3 mmol/L (3.5-5.1); TOTAL BILIRUBIN 0.7 mg/dL (0.2-1.0); TOTAL PROTEIN 5.6 g/dL (6.4-8.2)
[2020-10-19 05:18] LABS: CREATININE 2.2 mg/dL (0.7-1.3)
--- NOTE | 2020-10-19 05:45 | NUR ---
PATIENT REMAINS ON THE VENT. FENTANYL, PROPOFOL, VERSED GTT FOR SEDATION. AFEBRILE. VSS. LEVOPHED TITRATED OFF. SAMUEL IN PLACE WITH MINIMAL U/O. DOES NOT TOLERATE TURN. DR PERSAUD NOTIFIED OF CRITICAL PH. BATH GIVEN. WILL KEEP MONITORING
--- NOTE | 2020-10-19 15:19 | NUR ---
PT INTUBATED AND SEDATED, VENT SETTINGS CHANGED BY RT. LEVOPHED INIATED DUE TO HYPOTENSION. PT NOW ON SEPSIS PROTOCAL. PT HYPOTHERMIC, NO BM, ANEURIC, TPN IN PLACE, OGT TO LIS, CENTRAL LINE IN PLACE AND FUNCTIONING WELL. PT AND FAMILY HAVE BEEN UPDATED AND EDUCATED ON PT CONDITION AND POC. PT NOT PROGRESSING TOWARDS POC.
[2020-10-19 16:45] LABS: PROTIME 49.1 Seconds (9.3-11.4)
[2020-10-19 17:01] LABS: INR 4.8
--- NOTE | 2020-10-19 21:18 | NUR ---
PATIENT'S DUAGHTER AND GRANDSON USED iPAD TO SPEAK TO PATINET, PATIENT IS SEDATE AND URESPONSIVE, HOWEVER, FAMILY WAS ABLE TO VIEW AND SPEAK TO PATIENT.
[2020-10-20] VITALS (35 sets, daily range): BP systolic 91–150; BP diastolic 52–83
[2020-10-20 05:15] LABS: HEMATOCRIT 32.7 % (42.0-52.0); HEMOGLOBIN 10.5 gm/dL (14.0-18.0); MCH 32.8 pg (26.0-34.0); MCHC 32.2 g/dL (28.0-37.0); MCV 101.7 fL (80.0-100.0); RBC 3.21 mil/uL (4.50-6.00); RDW 14.4 % (10.5-14.5); WBC 19.8 thou/uL (4.0-11.0)
[2020-10-20 05:42] LABS: INR 4.4
[2020-10-20 06:01] LABS: MAGNESIUM 2.2 mg/dL (1.8-2.4); PHOSPHORUS 4.6 mg/dL (2.5-4.9)
[2020-10-20 06:04] LABS: CREATININE 4.1 mg/dL (0.7-1.3)
--- NOTE | 2020-10-20 06:20 | NUR ---
Norman CHILDS, COUNT TEAM CLERK ROUNDED 0400, AWARE OF OLIGOURIA. NO NEW ORDERS, PLEASE HAVE NEPHROLOGY, THAT IS ALREADY CONSULTED REVIEW ORDERS IN AM. RENAL ULTRA SOUND HAS BEEN COMEPLETED. CR IS ELEVATED DELTA 4.1 THIS AM. PT WEIGHT 10/19/20 WAS 83.92, 10/20/20 WAS 92.6KG.
--- NOTE | 2020-10-20 07:10 | NUR ---
DR NEAL ROUNDED UPDATED ON OLIGURIA, WEIGHT GAIN, I AND O, CR. 4.1, IV FLUIDS, AND MAINT GTTS FOR BP AND SEDATION. HE WILL REVIEW LABS AND PROVIDE OREDERS NEEDED.
--- NOTE | 2020-10-20 08:39 | NUR ---
ASSUMMED CARE OF THIS PATIENT FROM THE NIGHT NURSE AT 0700.
--- NOTE | 2020-10-20 09:25 | NUR ---
Recommend change tube feed formula to nepro at 40ml/hr goal while on propofol and until renal function improves
--- NOTE | 2020-10-20 11:13 | NUR ---
BLOOD CULTURES REPEATED. SPOKE WITH THE PHARMACY CONCERNING PIPERCILLIN COVERAGE WITH ELEVATED CREATININE.
--- NOTE | 2020-10-20 14:05 | NUR ---
chart review. he had to be intubated on , cont with nutritional support. unable to visit with tasia. noted updates provided to his child. nephrology consult. will cont following as needed for dc needs.
--- NOTE | 2020-10-20 19:51 | NUR ---
PATIENT IS NOT PROGRESSING TOWARDS OUTCOME GOALS URINE OUTPUT IS MINIMAL AND CREATITINE IS INCREASING. REMAINS OBTUNDENT. COUGH AND GAG PRESENT.
--- NOTE | 2020-10-20 21:00 | NUR ---
MECHANICAL DESIGN ENGINEER FACILITIES GAVE LAST RITES TO PT OVER THE PHONE. FAMILY FACE TIMED
[2020-10-21] VITALS (28 sets, daily range): BP systolic 114–150; BP diastolic 62–80
[2020-10-21 05:13] LABS: HEMATOCRIT 31.7 % (42.0-52.0); HEMOGLOBIN 10.3 gm/dL (14.0-18.0); MCH 33.1 pg (26.0-34.0); MCHC 32.5 g/dL (28.0-37.0); MCV 101.8 fL (80.0-100.0); RBC 3.11 mil/uL (4.50-6.00); RDW 14.6 % (10.5-14.5); WBC 17.8 thou/uL (4.0-11.0)
[2020-10-21 05:16] LABS: INR 3.4; PROTIME 35.6 Seconds (9.3-11.4)
[2020-10-21 05:28] LABS: CALCIUM 7.1 mg/dL (8.5-10.1); MAGNESIUM 2.2 mg/dL (1.8-2.4); PHOSPHORUS 6.6 mg/dL (2.5-4.9); POTASSIUM 5.4 mmol/L (3.5-5.1); TOTAL BILIRUBIN 0.7 mg/dL (0.2-1.0); TOTAL PROTEIN 5.6 g/dL (6.4-8.2)
--- NOTE | 2020-10-21 06:00 | NUR ---
REMAINS INTUBATED AND SEDATED LIGHTLY WITH FENTANYL AND VERSED. PROPOFOL REMAINS OFF. LEVOPHED GTT TITRATED OFF. 3 CC UO THIS SHIFT. NOT PROGRESSING TOWARD GOALS. O2 SAT 95 % ON 60 % FIO2
--- NOTE | 2020-10-21 11:06 | NUR ---
discussed during rounds with pulmonary MD and icu team. family has decided to make code a DNR. possible will be palliative extubated today, when family makes decision to move towards. will cont following as needed for dc needs.
--- NOTE | 2020-10-21 19:15 | NUR ---
patient passes away at 1548. prior to extubation patient family members came to see patient. all belongings sent home to [facility].
== END 2020-10-21 15:48 | DRG 871 ==
LOC: ER 10:10 → EROBS 13:44 → 3W 13:44 → ICU 10-17 20:02
PROVIDERS: Emergency Medicine; Internal Medicine Pulmonary Disease; Specialist; ADMIT Hospitalist; ATTEND Hospitalist
DX: A41.9 Sepsis, unspecified organism (principal); U07.1 COVID-19; J12.82 Pneumonia due to coronavirus disease 2019; N17.0 Acute kidney failure with tubular necrosis; J80 Acute respiratory distress syndrome; D68.9 Coagulation defect, unspecified; I38 Endocarditis, valve unspecified; I48.21 Permanent atrial fibrillation; F41.9 Anxiety disorder, unspecified; F32.9 Major depressive disorder, single episode, unspecified; G25.81 Restless legs syndrome; M06.9 Rheumatoid arthritis, unspecified; Z66 Do not resuscitate; Z51.5 Encounter for palliative care; E78.00 Pure hypercholesterolemia, unspecified; R62.7 Adult failure to thrive; K59.00 Constipation, unspecified; F03.90 Unspecified dementia, unspecified severity, without behavioral disturbance, psychotic disturbance, mood disturbance, and anxiety; I25.10 Atherosclerotic heart disease of native coronary artery without angina pectoris; E78.5 Hyperlipidemia, unspecified; G40.909 Epilepsy, unspecified, not intractable, without status epilepticus; D69.6 Thrombocytopenia, unspecified; I10 Essential (primary) hypertension; Z95.0 Presence of cardiac pacemaker; Z95.1 Presence of aortocoronary bypass graft; Z88.6 Allergy status to analgesic agent; Z87.891 Personal history of nicotine dependence; Z95.2 Presence of prosthetic heart valve; Z79.01 Long term (current) use of anticoagulants; Z68.30 Body mass index [BMI] 30.0-30.9, adult
CPT/HCPCS: 10078; 10879